=== PATIENT | female | born 1990 | race Caucasian/White ===

== ENCOUNTER 2016-12-11 09:09 | Emergency (ER) | payer BC ==
[~2016-12-11] VITALS: Ht 157.5 cm; Wt 79.4 kg
[~2016-12-11 09:09] MED LIST: CEFDINIR300 M1 PO; LORTAB 5/500 501 TAB PO; MACROBID 100MG100 MG PO; MEDROL 4MG. DOSE4 MG PO; OMNICEF 300 MG300 MG PO; SKELAXIN 800MG800 MG PO; ZITHROMAX Z PA250 MG PO
--- OUTSIDE RECORDS SUMMARY | 2016-12-11 09:18 | External Medical Summary Rpt | CCD ---
Author Author , ERIC Organization ERIC Address Unknown Phone [email or web address] Care Team Providers Care Sandstone Inspector Repairer Name Role Phone ASSOCIATED Unavailable [facility], Unavailable Unavailable [facility] Unavailable Unavailable [facility] Unavailable Unavailable MEDICAL GROUP, [facility] RENO, RENO Unavailable Unavailable [facility] Unavailable [facility]available [facility] VELASQUEZ GAR, VELASQUEZ GAR Unavailable Unavailable LONG, LONG Unavailable Unavailable RAISA TER, RAISA TER Unavailable Unavailable [facility], Unavailable Unavailable [facility], Unavailable Unavailable [facility] ZIEGLER GORDO, ZIEGLER GORDO Unavailable Unavailable KENDALL II THO, KENDALL II Unavailable Unavailable THO ISAIAS OLEG, ISAIAS OLEG Unavailable Unavailable ISAIAS OLEG, ISAIAS OLEG Unavailable Unavailable ADITYA CHR, ADITYA CHR Unavailable Unavailable ADITYA CHR, ADITYA CHR Unavailable Unavailable [facility] Unavailable Unavailable PRACTICE, [facility] GREEN MONE, GREEN MONE Unavailable Unavailable HIGH JR CUR, HIGH JR Unavailable Unavailable CUR HIGH JR CUR, HIGH JR Unavailable Unavailable CUR KEDING, KEDING Unavailable Unavailable KEDING, KEDING Unavailable Unavailable KEDING LEXX, KEDING Unavailable Unavailable [facility] KEDING [facility]X, KEDING Unavailable Unavailable [facility] [address], Unavailable Unavailable [facility] [address] [facility] Unavailable Unavailable ASSOC[facility], [facility] Unavailable Unavailable INTERNAL MED, [facility] Unavailable Unavailable SERVICES, [facility] MATCHESWALA KAIT, Unavailable Unavailable MATCHESWALA KAIT MCKEMIE JR ARIANNA, Unavailable Unavailable MCKEMIE JR ARIANNA MCKEMIE JR ARIANNA, Unavailable Unavailable MCKEMIE JR ARIANNA FISH SADIE, Unavailable Unavailable FISH SADIE FISH SADIE, Unavailable Unavailable FISH SADIE COLES JAM, COLES Unavailable Unavailable JAM COLES JAM, COLES Unavailable Unavailable J[facility] Unavailable Unavailable [facility], Unavailable [facility]available [facility] PETRAS ALI, PETRAS Unavailable Unavailable ALI JUAN LUIS, JUAN LUIS Unavailable Unavailable KERRY, KERRY Unavailable Unavailable KERRY HEN, KERRY Unavailable Unavailable HEN NELIDA HEN, NELIDA Unavailable Unavailable HEN CONNELL DON, Unavailable Unavailable CONNELL DON CHANDLER MIO, CHANDLER Unavailable Unavailable [facility] SWINEY PAT, SWINEY Unavailable Unavailable PAT WHITE III ARIANNA, WHITE Unavailable Unavailable III ARIANNA WHITE III ARIANNA, WHITE Unavailable Unavailable III ARIANNA Purpose Continuity of Care Document - 02-03-2012 through 2016 Problems Code Diagnosis DOS Provider Status M542 CERVICALGIA 10-11-2016 [place] M791 MYALGIA 05-01-2016 [facility] R0981 NASAL 05-01-2016 [facility] R5383 OTHER 05-01-2016 [facility] FATIGUE [facility] E669 OBESITY 02-06-2016 [place] UNSPECIFIED VALLEY INTERNAL MED R35387 MIGRAINE 02-06-2016 [place] W/AURA NOT VALLEY INTRACT W/O INTERNAL STAT MED MIGRAINOSUS K219 GASTRO-ESOP 02-06-2016 [place] H REFLUX VALLEY DISEASE INTERNAL WITHOUT MED ESOPHAGITIS H31429 MIGRAINE 01-31-2016 [facility] UNS NOT N EMERGENCY INTRACT W/O PHYS STATUS MIGRAINOSUS H538 OTHER 01-31-2016 [facility] DISTURBANCE S R51 HEADACHE 01-31-2016 [facility] J069 ACUTE UPPER 01-08-2016 [facility] RESPIRATORY PRACTICE INFECTION UNSPECIFIED O80 ENCOUNTER 09-30-2015 [facility] FULL-TERM MEDICAL UNCOMPLICAT GROUP ED DELIVERY Z370 SINGLE LIVE 09-30-2015 REST[facility]IST [facility] [id number] WEEKS 09-30-2015 RESTORATIONIST [facility] [id number] MATERNAL 09-23-2015 [facility] [place] GROWTH 3RD TRI NA/UNS [id number] 38 WEEKS 09-23-2015 RESTORATIONIST GESTATION [facility] M5432 SCIATICA 09-18-2015 AD[facility] CHR LEFT SIDE M9904 SEGMENTAL & 09-18-2015 AD[facility]A CHR SOMATIC DYSFUNCTION OF SACRAL REGION M9905 SEGMENTAL & 09-18-2015 ADITYA CHR SOMATIC DYSFUNCTION OF PELVIC REGION [id number] PAIN IN 08-26-2015 RESTORATIONIST RIGHT HIP [facility] [id number] MATERNAL 08-26-2015 REST[facility]IST CARE FOR [facility] MEDICAL PRESENTATIO GROUP N NA/UNS [id number] 34 WEEKS 08-26-2015 RESTORATIONIST [facility] OF MEDICAL GROUP J0100 ACUTE 05-13-2015 [facility]IST [facility] SINUSITIS MEDICAL UNSPECIFIED GROUP 7088 OTHER 09-02-2014 RESTORATIONIST SPECIFIED [facility]ALTH [facility] 7231 CERVICALGIA 07-24-2014 KEMIRELA [place] 7235 TORTICOLLIS 07-24-2014 RALF [place] , UNSPECIFIED 53620 CLOSED 07-24-2014 [place] FRACTURE OF ORTHOPAEDIC UPPER END ASSOCI OF [place] V7231 ROUTINE 06-09-2014 RESTOR[facility]IST GYNECOLOGIC HEALTH AL MEDICAL EXAMINATION GROUP V762 SCREENING 06-09-2014 ASSOC[facility]ATED FOR PATHOLOGIST MALIGNANT S LLC NEOPLASM OF THE CERVIX 20632 SPASMODIC 05-18-2014 [facility] TORTICOLLIS N EMERGENCY PHYS 7241 PAIN IN 05-18-2014 [facility] THORACIC N EMERGENCY SPINE PHYS 7248 OTHER 05-18-2014 [facility] SYMPTOMS N EMERGENCY REFERABLE PHYS TO BACK 4611 ACUTE 04-14-2014 [facility] SINUSITIS HOSPITAL 63825 ESOPHAGEAL 04-14-2014 [facility] REFLUX [facility] 7242 LUMBAGO 04-14-2014 [place] 7851 PALPITATION 04-14-2014 [facility] 74517 PRECORDIAL 04-14-2014 [facility] PAIN [facility] V2541 SURVEILLANC 03-31-2014 RESTORATIONIST E PREV HEALTH PRESCRIBED MEDICAL CONTRACEPT GROUP PILL V2543 SURVEILLANC 03-31-2014 RESTORATIONIST E PREV PRSC HEALTH IMPL MEDICAL SUBDERMAL GROUP CONTRACEPT 4619 ACUTE 03-13-2014 [facility] SINUSITIS, [facility] UNSPECIFIED HOSPITAL 7840 HEADACHE 03-13-2014 [facility] 460 ACUTE 02-17-2014 RESTORATIONIST NASOPHARYNG [facility] 79008 ACUTE 02-17-2014 RESTORATIONIST GASTRITIS EXPRESS WITHOUT CARE MENTION OF HEMORRHAGE 1104 DERMATOPHYT 01-20-2014 [facility] 6262 EXCESSIVE 10-25-2012 COLES JAM OR FREQUENT MENSTRUATIO N 68234 MATERNAL 10-25-2012 COLES JAM MENTAL D/O COND/COMPLI CATION V242 ROUTINE 10-25-2012 COLES JAM FOLLOW-UP 650 NORMAL 09-06-2012 WHITE III DELIVERY ARIANNA 73523 FIRST-DEGRE 09-06-2012 COLES JAM E PERINEAL LACERATION WITH DELIVERY 7019 UNSPECIFIED 09-06-2012 ISAIAS DEJESUS HYPERTROPHI C&ATROPHIC CONDITION SKIN V270 OUTCOME OF 09-06-2012 COLES JAM DELIVERY SINGLE LIVEBORN 47978 DECR 09-04-2012 COLES [facility] MOVMNTS MGMT MOTH ANTPRTM COND/COMP V220 SUPERVISION 09-04-2012 COLES JAM OF NORMAL FIRST V2889 OTHER 09-04-2012 [facility] SPECIFIED SCREENING 49883 THREATENED 08-10-2012 COLES J[facility] PREMATURE LABOR ANTEPARTUM V2389 SUPERVISION 07-04-2012 FISH OF OTHER SADIE HIGH-RISK 80555 GENERALLY 06-01-2012 HIGH JR CUR CONTRACTED PELVIS ANTEPARTUM 39047 OTHER 05-03-2012 HIGH JR CUR SPECIFED COMPLICATIO N ANTEPARTUM 63511 OTH CURRENT 05-03-2012 [facility] MAT CONDS [facility] CLASS[facility]L HOSP E ELSW ANTPRTM 14227 TOB USE D/O 05-03-2012 [facility] COMP PG [facility] /PP HOSP ANTEPARTM COND/COMP 49451 ABDOMINAL 05-03-2012 HIGH JR CUR PAIN RIGHT LOWER QUADRANT 59811 ABDOMINAL 05-03-2012 [facility] PAIN OTHER [facility]IST SPECIFIED HOSP SITE V741 SCREENING 03-22-2012 USMAN RAMOS EXAMINATION ARIANNA FOR PULMONARY TUBERCULOSI S 6929 CONTACT 02-03-2012 [facility] DERMATITIS& EMERGENCY OTHER SERVICES ECZEMA DUE UNSPEC CAUSE 9953 ALLERGY 02-03-2012 [facility] UNSPECIFIED [facility]ERGENCY NOT SERVICES ELSEWHERE CLASSIFIED V141 PERSONAL 02-03-2012 [facility] OTHER ANTIBIOTIC AGENT V222 02-03-2012 [facility] Medications Na ND Rx Da Fi Fi Am Da Di Ph RX Ph St me C No te ll ll ou ys ag ar # ys at rm s nt no ma ic us Or Da si cy ia de te s n re d FL 00 04 05 7. 7 00 WA Ac UO 09 -1 -1 00 00 L- ti XE 37 0- 2- 0 07 MA ve TI 19 20 20 40 RT NE 85 17 17 32 6 58 PH HC AR L MA 40 CY MG #4 93 CA PS UL E IB 68 03 04 90 30 00 WA Ac UP 64 -1 -1 .0 00 L- ti RO 50 2- 4- 00 07 MA ve FE 53 20 20 39 RT N 15 17 17 76 80 4 67 PH 0 AR MG MA CY TA BL #4 ET 93 OS 47 03 04 10 5 00 WA Ac EL 78 -1 -1 .0 00 L- ti TA 10 2- 4- 00 07 MA ve DC 47 20 20 39 RT 01 17 17 76 R 3 68 PH PH AR OS MA CY 75 #4 MG 93 CA PS UL E BU 49 02 03 60 31 00 WA Ac SP 88 -2 -3 .0 00 L- ti IR 40 3- 1- 00 07 MA ve ON 72 20 20 39 RT E 50 17 17 45 HC 5 67 PH L AR 7. MA 5 CY MG #4 TA 93 BL ET FL 00 02 03 30 30 00 WA Ac UO 09 -2 -3 .0 00 L- ti XE 37 3- 1- 00 07 MA ve TI 19 20 20 39 RT NE 85 17 17 45 6 66 PH HC AR L MA 40 CY MG #4 93 CA PS UL E Procedures Procedure DOS Code Location Performer Comment [facility] 22279 [place] TIC 7 MANIPULAT YESSI [place] SPINAL 1-2 REG[place] [facility] 01851 [place] TIC 7 MANIPULAT YESSI [place] SPINAL 1-2 REG[place] [facility] 25839 [place] TIC 7 MANIPULAT YESSI TX SPINAL 1-2 REG[place] [facility] 98522 [place] TIC 7 MANIPULAT YESSI TX SPINAL 1-2 REG[place] [facility] 02408 [place] TIC 7 MANIPULAT YESSI TX SPINAL 1-2 REGIONS [facility] 40121 [place] TIC 7 MANIPULAT YESSI TX SPINAL 1-2 REGIONS [facility] 67806 [place] TIC 7 MANIPULAT YESSI TX SPINAL 1-2 REG[place] [facility] 53399 [place] TIC 7 MANIPULAT YESSI [place] SPINAL 1-2 [place] APPL 31785 [place] MODALITY 7 1/> AREAS TRACTION MECHANICA L CHIROPRAC 33398 [place] TIC 7 MANIPULAT YESSI TX SPINAL 1-2 [place] THERAPEUT 22338 [place] IC PX 1/> 7 AREAS EACH 15 MIN EXERCISES IAADIADOO 26491 RESTORATIONIST KERRY 7 HEALTH INFL[facility] MEDICAL GROUP THERAPEUT 93087 RALF ALARCONDING IC PX 1/> 7 AREAS EACH 15 MIN EXERCISES APPL 12955 AGNESDING [place] MODALITY 7 1/> AREAS TRACTION MECHANICA L CHIROPRAC 12136 [place] TIC 7 MANIPULAT [place]ESS[place] SPINAL 1-[address] [place] [address] [facility] HEAD/BRAI 6 RADIOLOGY N W/O CONTRAST MATERIAL INJ J0702 [facility] HEN SONE PRACTICE ACETATE & PHOSPHATE 3 MG THERAPEUT 10879 [facility] IC 6 N FAMILY [facility] PROPHYLAC PRACTICE TIC/DX INJECTION SUBQ/IM NEURAXIAL 14814 RESTORATIONIST CHANDLER LABOR 6 ANESTHESI MIO ANALG/ANE A PSC S PLND VAGINAL DELIVERY OB CARE 71495 RESTORATIONIST COLES ANTEPARTU 6 HEALTH JAM M VAG MEDICAL DLVR & GROUP POSTPARTU M INTRODUCT [id number] RESTORATIONIST RESTORATIONIST ION OTH 6 [facility] PERIPHERA L VEIN PERQ DELIVERY [id number] RESTORATIONIST RESTORATIONIST PRODUCTS 6 [facility] CONCEPTIO N EXTERNAL US PREG 65184 RESTORATIONIST RESTORATIONIST UTERUS 6 [facility] TRIMEST 1 GESTATION CHIROPRAC 40431 ADITYA CHR ADITYA CHR TIC 6 MANIPULAT YESSI TX SPINAL 1-2 REGIONS 95828 RESTORATIONIST COLES 6 [facility]TER[facility] MEDICAL LIMITED GROUP 1/> FETUSES RADIOLOGI 13069 [place] VELASQUEZ GAR C 5 EXAMINATI ORTHOPAED ON KNEE IC ASSOCI 1/2 VIEWS CHIROPRAC 10577 [place] TIC 5 [place]X [place] MANIPULAT YESSI TX SPINAL 1-2 REGIONS CHIROPRAC 61745 [place] TIC 5 LEXX [place]EX[place] MANIPULAT YESSI TX SPINAL 1-2 REGIONS CHIROPRAC 27579 [place] TIC 5 LEXX [place]EXX MANIPULAT YESSI TX SPINAL 1-2 REGIONS CHIROPRAC 01247 [place] TIC 5 LEXX LXEX MANIPULAT YESSI TX SPINAL 1-2 REGIONS CHIROPRAC 91009 [place] TIC 5 LEXX LEXX MANIPULAT YESSI TX SPINAL 1-2 REGIONS CHIROPRAC 43781 [place] TIC 5 LEXX [place]EXX MANIPULAT YESSI TX SPINAL 1-2 REGIONS CHIROPRAC 15704 [place] TIC 5 LEXX [place]EX[place] MANIPULAT YESSI TX SPINAL 1-2 REGIONS CYTP C/V 35986 ASSOCIATE LENEMILTO AUTO THIN [address] L[address] PATHOLOGI PREPJ SCR STS LLC MNL RESCR PHYS CHIROPRAC 72790 [place] TIC 5 LEXX LEX[place] MANIPULAT YESSI TX SPINAL 1-2 REGIONS CHIROPRAC 98808 [place] TIC 5 LEXX LEXX MANIPULAT YESSI TX SPINAL 1-2 REGIONS CHIROPRAC 16513 [place] TIC 5 LEXX LEXX MANIPULAT YESSI TX SPINAL 1-2 REGIONS CHIROPRAC 47976 [place] TIC 5 LEXX [place]X MANIPULAT YESSI TX SPINAL 1-2 [facility] COMPREHEN 21992 [facility] SIVE [address] [place] [address] HOSPITAL PANEL APPL 97731 [place] MODALITY 5 LEXX LEXX 1/> [place] [address] [facility] THYROID [address] [place] [address] NG HORMONE TSH COLLECTIO 76628 [facility] N VENOUS 5 [facility] VENIPUNCT URE THERAPEUT 29678 [place] IC PX 1/> 5 [place] AREAS EACH 15 MIN EXERCISES SEDIMENTA 33247 [facility] TION RATE 5 [facility] NON-AUTOM ATED 25 93715 [facility] HYDROXY [address] [place] [address] FRACTIONS IF PERFORMED GONADOTRO 49355 [facility] PIN [address] [place] [address] QUALITATI VE BLOOD 17127 [facility] COUNT 5 [facility] AUTO&AUTO DIFRNTL WBC REMOVAL 84518 RESTORATIONIST COLES NON-BIODE 5 HEALTH JAM GRADABLE [facility] DR[facility] GROUP DELIVERY IMPLANT CHIROPRAC 77996 [place] TIC 5 L[place]X [place] MANIPULAT YESSI TX SPINAL 1-2 REGIONS CHIROPRAC 25736 [place] TIC 5 L[place]X [place] MANIPULAT YESSI TX SPINAL 1-2 REG[facility] APPL 97803 [place] MODALITY 5 L[place]X LEXX 1/> AREAS TRACTION MECHANICA L THERAPEUT 72528 [place] IC PX 1/> 5 [place] AREAS [place] [address] [place] [address] [facility]/BRAI 5 [facility] W/O [facility] CONTRAST MATERIAL CHIROPRAC 65409 [place] TIC 5 [place]X [place] MANIPULAT YESSI TX SPINAL 1-2 REGIONS CHIROPRAC 23174 [place] TIC 5 L[place]X [place]EXX MANIPULAT YESSI TX SPINAL 1-2 REGIONS ECHO 45480 GORDO ZIEGLER ZIEGLER GORDO TTHRC R-T 5 2D CONSULTIN W/WOM-MOD G SRV E COMPL SPEC&COLR D ECG 11838 GORDO ZIEGLER ZIEGLER GORDO ROUTINE 5 MD ECG CONSULTIN W/LEAST G SRV 12 LDS W/I&R INJECTION J3301 SAVANNAH MCGARRY MONE 5 [facility] ACETONIDE NOS 10 [facility] 14652 [facility]IST KERRY 4 EXPRESS HEN INFLUENZA CARE 56673 COLES COLES TRANSVAGI 3 JAM JAM NAL ETONOGEST J7307 COLES COLES REL 3 JAM JAM CNTRACPT IMPL SYS INCL IMPL & SPL INSJ 54706 COLES COLES NON-BIODE 3 JAM JAM GRADABLE DRUG DELIVERY IMPLANT VAGINAL 43402 COLES COLES DELIVERY 3 JAM JAM ONLY W/POSTPAR LORI CARE LEVEL III 24836 ISAIAS ESPARZA OLEG SURG 3 PATHOLOGY GROSS&TIARA ROSCOPIC EXAM NEURAXIAL 55969 WHITE III WHITE III LABOR 3 ARIANNA ARIANNA ANALG/ANE S PLND VAGINAL DELIVERY MEDICAL 734 [facility] INDUCTION 3 RESTORATIONIST RESTORATIONIST OF LABOR HOSP HOSP REPAIR OF 7569 [facility] OTHER 3 RESTORATIONIST RESTORATIONIST CURRENT HOSP HOSP OBSTETRIC LACERATIO N OTHER 7279 [facility] VACUUM 3 RESTORATIONIST RESTORATIONIST EXTRACTIO HOSP HOSP N INDUCTION 7301 [facility] LABOR 3 RESTORATIONIST RESTORATIONIST ARTIFICIA HOSP HOSP L RUPTURE MEMBRANES 39911 COLES COLES NONSTRESS 3 JAM JAM TEST CUL 37532 PATH PATH PRSMPTV 3 GROUP GROUP PTHGNC LABS [facility] LABS ClariFI ORGANISM SCRN W/COLONY ESTIMJ 69027 COLES COLES BIOPHYSIC 3 JAM JAM AL PROFILE NON-STRES S TESTING US PREG 76938 COLES COLES UTERUS 3 JAM JAM REAL TIME W/IMAGE DCMTN [facility] 78802 COLES COLES DISCHARGE 3 JAM JAM DAY MANAGEMEN T 30 MIN/< US PREG 04270 FISH FISH UTERUS 3 SADIE SADIE W/DETAIL CHAY 1ST GESTATION SBSQ 01735 [facility] 3 JAM JAM CARE/DAY 15 MINUTES INITIAL 84664 COLES COLES OBSERVATI 3 JAM JAM ON CARE/DAY 30 MINUTES GLUCOSE 70737 PATH PATH POST 3 GROUP GROUP GLUCOSE LABS [facility] DOSE INJECTION J3105 [facility] 3 RESTORATIONIST RESTORATIONIST TERBUTALI HOSP HOSP NE SULFATE UP TO 1 [place] [address] HIGH JR HIGH JR NONSTRESS 3 CUR CUR TEST INITIAL 47326 HIGH JR HIGH JR OBSERVATI 3 CUR CUR ON CARE/DAY 30 MINUTES URNLS DIP 21021 [facility] 3 RESTORATIONIST RESTORATIONIST STICK/TAB HOSP HOSP LET RGNT AUTO W/O MICROSCOP Y URNLS DIP 87549 [facility] 3 RESTORATIONIST RESTORATIONIST STICK/TAB HOSP HOSP LET RGNT AUTO W/O MICROSCOP Y INITIAL 30140 HIGH JR HIGH JR OBSERVATI 3 CUR CUR ON CARE/DAY 50 MINUTES 11649 [facility] NONSTRESS 3 RESTORATIONIST RESTORATIONIST TEST HOSP HOSP INJECTION J3105 [facility] 3 RESTORATIONIST RESTORATIONIST TERBUTALI HOSP HOSP NE SULFATE UP TO 1 MG US PREG 86910 COLES COLES UTERUS 3 JAM JAM AFTER 1ST TRIMEST / GESTATION ALPHA-FET 47953 PATH PATH OPROTEIN 3 GROUP GROUP [facility] CFTR GENE 06755 RAISA HATFIELD ANALYSIS [address] [place] [address] [address] ESTRIOL 3 GROUP [facility] [place] [address] PATH PATH 3 GROUP [facility] GONADOTRO 02041 PATH PATH PIN 3 GROUP GROUP CHORIONIC [facility] QUANTITAT YESSI SKIN TEST 31858 MARIA AMIE DEMARIOKEMIE 3 JR ARIANNA RAMOS ARIANNA TUBERCULO SIS INTRADERM AL IM ADM 88926 USMAN MARY PRQ ID 3 JR ARIANNA RAMOS ARIANNA SUBQ/IM NJXS 1 VACCINE IAADIADOO 37539 USMAN HANKSKEMIE 3 JR ARIANNA RAMOS ARIANNA INFLUENZA COLLECTIO 39564 RAISA HATFIELD N VENOUS 3 BLOOD VENIPUNCT URE THERAPEUT [address] TIC/DX INJECTION SUBQ/IM Encounters Encounter Start End Date Code Location Performer Type Date OFFICE 57480 RALF ARAMBULA OUTPATIEN 7 7 T VISIT 5 MINUTES OFFICE 92934 RESTORATIONIST KERRY OUTPATIEN 7 7 HEALTH T VISIT MEDICAL 15 GROUP MINUTES OFFICE 75932 L[facility] RENO OUTPATIEN 6 6 VALLEY T VISIT INTERNAL 15 MED MINUTES EMERGENCY 91337 [facility] DEPT 6 6 KATHRYN VISIT EMERGENCY HIGH PHYS SEVERITY& THREAT FUNCJ OFFICE 60033 [facility] NELIDA OUTPATIEN 6 6 N FAMILY HEN T VISIT PRACTICE 15 MINUTES [facility] RESTORATIONIST - 6 6 HEALTH INPATIENT [facility] RESTORATIONIST - 6 6 HEALTH OUTPATIEN [place] T OFFICE 32526 ADITYA CHR ADITYA CHR OUTPATIEN 6 6 T NEW 20 MINUTES OFFICE 47001 RESTORATIONIST COLES OUTPATIEN 6 6 HEALTH JAM T VISIT MEDICAL 15 GROUP MINUTES OFFICE 07871 RESTORATIONIST MATCHESWA OUTPATIEN 6 6 HEALTH LA KAIT T VISIT MEDICAL 15 GROUP MINUTES OFFICE 42491 RESTORATIONIST CONNELL OUTPATIEN 5 5 HEALTH DON T VISIT MEDICAL 15 GROUP MINUTES OFFICE 35404 [facility] 5 T VISIT ORTHOPAED 10 IC ASSOCI MINUTES PERIODIC 46838 RESTORATIONIST COLES PREVENTIV 5 5 HEALTH JAM E MED EST MEDICAL PATIENT GROUP 18-39 YRS EMERGENCY 27553 [facility] DEPT 5 5 KATHRYN THO VISIT EMERGENCY HIGH PHYS SEVERITY& THREAT [facility] - 5 5 [facility] OFFICE 86336 RESTORATIONIST COLES OUTPATIEN 5 5 HEALTH JAM T VISIT MEDICAL 15 GROUP MINUTES [facility] - 5 5 [facility] OFFICE 98297 [place] [place] OUTPATIEN 5 5 [place] T NEW 30 MINUTES OFFICE 73476 [facility] ZIEGLER ZIEGLER GORDO OUTPATIEN 5 5 MD T VISIT 5 CONSULTIN MINUTES G SRV OFFICE 37420 SAVANNAH GREEN MONE OUTPATIEN 5 5 FAMILY T VISIT PHYSICIAN 15 S PLLC MINUTES OFFICE 32092 RESTORATIONIST KERRY OUTPATIEN 4 4 EXPRESS HEN T NEW 30 CARE MINUTES OFFICE 63122 SAVANNAH PETRAS OUTPATIEN 4 4 FAMILY ALI T VISIT PHYSICIAN 15 S PLLC MINUTES OFFICE 79572 COLES COLES OUTPATIEN 3 3 JAM JAM T VISIT 15 MINUTES OFFICE 67493 COLES COLES OUTPATIEN 3 3 JAM JAM T VISIT 15 MINUTES HOSPITAL CENTRAL - 3 3 RESTORATIONIST INPATIENT HOSP OFFICE 29039 COLES COLES OUTPATIEN 3 3 JAM JAM T VISIT 15 MINUTES OFFICE 89051 COLES COLES OUTPATIEN 3 3 JAM JAM T VISIT 15 MINUTES OFFICE 06694 COLES COLES OUTPATIEN 3 3 JAM JAM T VISIT 15 MINUTES OFFICE 65934 COLES COLES OUTPATIEN 3 3 JAM JAM T VISIT 15 MINUTES OFFICE 93674 COLES COLES OUTPATIEN 3 3 JAM JAM T VISIT 15 MINUTES OFFICE 57037 COLES COLES OUTPATIEN 3 3 JAM JAM T VISIT 15 MINUTES OFFICE 36383 COLES COLES OUTPATIEN 3 3 JAM JAM T VISIT 15 MINUTES OFFICE 14302 COLES COLES OUTPATIEN 3 3 JAM JAM T VISIT 15 MINUTES OFFICE 61733 COLES COLES OUTPATIEN 3 3 JAM JAM T VISIT 15 MINUTES OFFICE 63231 COLES COLES OUTPATIEN 3 3 JAM JAM T VISIT 15 MINUTES OFFICE 13515 COLES COLES OUTPATIEN 3 3 JAM JAM T VISIT 15 MINUTES HOSPITAL CENTRAL - 3 3 [facility]ATIONIST INPATIENT HOSP OFFICE 13054 COLES COLES OUTPATIEN 3 3 JAM JAM T VISIT 15 MINUTES OFFICE 39826 COLES COLES OUTPATIEN 3 3 JAM JAM T VISIT 15 MINUTES OFFICE 19538 COLES COLES OUTPATIEN 3 3 JAM JAM T VISIT 15 MINUTES HOSPITAL CENTRAL - 3 3 RESTORATIONIST OUTPATIEN HOSP T OFFICE 56096 COLES COLES OUTPATIEN 3 3 JAM JAM T VISIT 15 MINUTES OFFICE 25014 COLES COLES OUTPATIEN 3 3 JAM JAM T VISIT 15 MINUTES HOSPITAL CENTRAL - 3 3 RESTORATIONIST OUTPATIEN HOSP T OFFICE 37894 COLES COLES OUTPATIEN 3 3 JAM JAM T VISIT 15 MINUTES OFFICE 68816 COLES COLES OUTPATIEN 3 3 JAM JAM T VISIT 15 MINUTES OFFICE [id number] MCKEMIE MCKEMIE OUTPATIEN 3 3 JR ARIANNA JR ARIANNA T VISIT 15 MINUTES OFFICE 07121 COLES COLES OUTPATIEN 3 3 JAM JAM T VISIT 15 MINUTES EMERGENCY 37938 NEWHALL 2 2 [facility] T VISIT MODERATE SEVERITY [facility] 2 2 [facility] EMERGENCY 88719 VERONICA CATALAN 2 2 EMERGENCY [facility] T VISIT HIGH/URGE NT SEVERITY
--- OUTSIDE RECORDS SUMMARY | 2016-12-11 09:18 | External Medical Summary Rpt | CCD ---
Author Author , ERIC Organization ERIC Address Unknown Phone [email or web address] Care Team Providers Care Contact Lens Manufacturer Name Role Phone [facility]OC[facility]ATED Unavailable [facility], Unavailable Unavailable [facility] Unavailable Unavailable [facility] Unavailable Unavailable MEDICAL GROUP, [facility] RENO, RENO Unavailable Unavailable [facility] Unavailable Unavailable HOSPITAL, [facility] VELASQUEZ GAR, VELASQUEZ GAR Unavailable Unavailable LONG, LONG Unavailable Unavailable RAISA TER, RAISA TER Unavailable Unavailable [facility], Unavailable Unavailable [facility], Unavailable Unavailable [facility] ZIEGLER GORDO, ZIEGLER GORDO Unavailable Unavailable KENDALL II THO, KENDALL II Unavailable Unavailable THO ISAIAS OLEG, ISAIAS OLEG Unavailable Unavailable ISAIAS OLEG, ISAIAS OLEG Unavailable Unavailable ADITYA CHR, ADITYA CHR Unavailable Unavailable ADITYA CHR, ADITYA CHR Un[facility] GREEN MONE, GREEN MONE Unavailable Unavailable HIGH JR CUR, HIGH JR Unavailable Unavailable CUR HIGH JR CUR, HIGH JR Unavailable Unavailable CUR KEDING, KEDING Unavailable Unavailable KEDING, KEDING Unavailable Unavailable KEDING [facility], KEDING Unavailable Unavailable [facility] K[facility]ING [facility], KEDING Unavailable Unavailable [facility] [address], Unavailable Unavailable [facility] Unavailable Unavailable [facility]OCI, [facility] Unavailable Unavailable [facility], [facility] Unavailable Unavailable SERVICES, [facility] MATCHESWALA KAIT, Unavailable Unavailable MATCHESWALA KAIT MCKEMIE JR ARIANNA, Unavailable Unavailable MCKEMIE JR ARIANNA MCKEMIE JR ARIANNA, Unavailable Unavailable MCKEMIE JR ARIANNA FISH SADIE, Unavailable Unavailable FISH SADIE FISH SADIE, Unavailable Unavailable FISH SADIE COLES JAM, COLES Unavailable Unavailable JAM COLES JAM, COLES Unavailable Unavailable JAM [facility] Unavailable Unavailable [facility], Unavailable Unavailable [facility] PETRAS ALI, PETRAS Unavailable Unavailable ALI [...] M542 CERVICALGIA 10-11-2016 [place] M791 MYALGIA 05-01-2016 [facility] R0981 NASAL 05-01-2016 [facility] R5383 OTHER 05-01-2016 [facility] FATIGUE [facility] E669 OBESITY 02-06-2016 [place] UNSPECIFIED VALLEY INTERNAL MED P09118 MIGRAINE 02-06-2016 [place] W/AURA NOT VALLEY INTRACT W/O INTERNAL STAT MED MIGRAINOSUS K219 GASTRO-ESOP 02-06-2016 [place] H REFLUX VAL[facility] DISEASE INTERNAL WITHOUT MED ESOPHAGITIS T04494 MIGRAINE 01-31-2016 [facility] UNS NOT N EMERGENCY INTRACT W/O PHYS STATUS MIGRAINOSUS H538 OTHER 01-31-2016 [facility] DISTURBANCE S R51 HEADACHE 01-31-2016 [facility] J069 ACUTE UPPER 01-08-2016 [facility]ACTICE INFECTION UNSPECIFIED O80 ENCOUNTER 09-30-2015 [facility] FULL-TERM MEDICAL UNCOMPLICAT GROUP ED DELIVERY Z370 SINGLE LIVE 09-30-2015 [facility] [id number] 39 WEEKS 09-30-2015 [facility] [id number] MATERNAL 09-23-2015 [facility] GROWTH 3RD TRI NA/UNS [id number] 38 WEEKS 09-23-2015 [facility] GESTATION [facility] M5432 SCIATICA 09-18-2015 ADITYA CHR LEFT SIDE M9904 SEGMENTAL & 09-18-2015 ADITYA CHR SOMATIC DYSFUNCTION OF SACRAL REGION M9905 SEGMENTAL & 09-18-2015 ADITYA CHR SOMATIC DYSFUNCTION OF PELVIC REGION P29055 PAIN IN 08-26-2015 [facility] RIGHT HIP [facility] [id number] MATERNAL 08-26-2015 [facility] MEDICAL PRESENTATIO GROUP N NA/UNS [id number] 34 WEEKS 08-26-2015 [facility]ATION [facility] J0100 ACUTE 05-13-2015 [facility] SINUSITIS MEDICAL UNSPECIFIED GROUP 7088 OTHER 09-02-2014 [facility] SPECIFIED [facility] 7231 CERVICALGIA 07-24-2014 [facility]EM[facility] [place] 7235 TORTICOLLIS 07-24-2014 RALF [place] , UNSPECIFIED 21707 CLOSED 07-24-2014 [place] FRACTURE OF ORTHOPAEDIC UPPER END ASSOCI OF [place] V7231 ROUTINE 06-09-2014 [facility] GYNEC[facility] AL MEDICAL EXAMINATION GROUP V762 SCREENING 06-09-2014 [facility] FOR PATHOLOGIST [facility] S [facility] NEOPLASM OF THE CERVIX 05923 SPASMODIC 05-18-2014 [facility] TORTICOLLIS N EMERGENCY PHYS 7241 PAIN IN 05-18-2014 [facility] THORACIC N EMERGENCY SPINE PHYS 7248 OTHER 05-18-2014 [facility] SYMPTOMS N EMERGENCY REFERABLE PHYS TO BACK 4611 ACUTE 04-14-2014 [facility]IN[facility]IS HOSPITAL 08905 ESOPHAGEAL 04-14-2014 [facility] REFLUX [facility] 7242 LUMBAGO 04-14-2014 [place] 7851 PALPITATION 04-14-2014 [facility] 79394 PRECORDIAL 04-14-2014 [facility] PAIN [facility] V2541 SURVEILLANC 03-31-2014 [facility] E PREV HEALTH PRESCRIBED MEDICAL CONTRACEPT GROUP PILL V2543 SURVEILLANC 03-31-2014 [facility] E PREV PRSC HEALTH IMPL MEDICAL SUBDERMAL GROUP CONTRACEPT 4619 ACUTE 03-13-2014 [facility] SINUSITIS, [facility] 7840 HEADACHE 03-13-2014 [facility] 460 ACUTE 02-17-2014 [facility] IT[facility] 70512 ACUTE 02-17-2014 [facility] GASTRITIS EXPRESS WITHOUT CARE MENTION OF HEMORRHAGE 1104 DERMATOPHYT 01-20-2014 [facility] 6262 EXCESSIVE 10-25-2012 COLES JAM OR FREQUENT MENSTRUATIO N 35434 MATERNAL 10-25-2012 COLES JAM MENTAL D/O COND/COMPLI CATION V242 ROUTINE 10-25-2012 [facility] FOLLOW-UP 650 NORMAL 09-06-2012 WHITE III DELIVERY ARIANNA 15624 FIRST-DEGRE 09-06-2012 COLES JAM E PERINEAL LACERATION WITH DELIVERY 7019 UNSPECIFIED 09-06-2012 ISAIAS DEJESUS HYPERTROPHI C&ATROPHIC CONDITION SKIN V270 OUTCOME OF 09-06-2012 COLES JAM DELIVERY SINGLE LIVEBORN 97073 DECR 09-04-2012 [facility] MOVMNTS MGMT MOTH ANTPRTM COND/COMP V220 SUPERVISION 09-04-2012 COLES JAM OF NORMAL FIRST V2889 OTHER 09-04-2012 [facility] SPECIFIED SCREENING 24362 THREATENED 08-10-2012 [facility] PREMATURE LABOR ANTEPARTUM V2389 SUPERVISION 07-04-2012 FISH OF OTHER SADIE HIGH-RISK 47248 GENERALLY 06-01-2012 HIGH JR CUR CONTRACTED PELVIS ANTEPARTUM 78542 OTHER 05-03-2012 HIGH JR CUR SPECIFED COMPLICATIO N ANTEPARTUM 25706 OTH CURRENT 05-03-2012 [facility] MAT CONDS [facility] CLASS[facility] E ELSW ANTPRTM 59850 TOB USE D/O 05-03-2012 [facility] COMP PG [facility] /PP HOSP ANTEPARTM COND/COMP 53742 ABDOMINAL 05-03-2012 HIGH JR CUR PAIN RIGHT LOWER QUADRANT 56747 ABDOMINAL 05-03-2012 [facility] PAIN OTHER [facility] SPECIFIED HOSP SITE V741 SCREENING 03-22-2012 USMAN RAMOS EXAMINATION ARIANNA FOR PULMONARY TUBERCULOSI S 6929 CONTACT 02-03-2012 [facility] DERMATITIS& EMERGENCY OTHER SERVICES ECZEMA DUE UNSPEC CAUSE 9953 ALLERGY 02-03-2012 [facility] UNSPECIFIED EMERGENCY NOT SERVICES ELSEWHERE CLASSIFIED V141 PERSONAL 02-03-2012 [facility] OTHER ANTIBIOTIC AGENT V222 02-03-2012 [facility] Medications Na ND Rx Da Fi [...] 10 2- 4- 00 07 [place] ve WI 47 20 20 39 RT 01 17 [...] Procedures Procedure DOS Code Location Performer Comment [facility] 72750 [place] T[place] 7 MANIPULAT YESSI TX SPINAL 1-2 REGIONS [facility] 73932 [place] TIC 7 MANIPULAT YESSI TX SPINAL 1-2 REGIONS [facility] 78449 [place] TIC 7 MANIPULAT YESSI TX SPINAL 1-2 REGIONS [facility] 94417 [place] TIC 7 MANIPULAT YESSI TX SPINAL 1-2 REGIONS [facility] 12448 [place] TIC 7 MANIPULAT YESSI TX SPINAL 1-2 REGIONS [facility] 70269 [place] TIC 7 MANIPULAT YESSI TX SPINAL 1-2 REGIONS [facility] 84763 [place] TIC 7 MANIPULAT YESSI TX SPINAL 1-2 REGIONS [facility] 17538 [place] TIC 7 MANIPULAT YESSI TX SPINAL 1-2 REGIONS APPL 58305 [place] MODALITY 7 1/> AREAS TRACTION MECHANICA L CHIROPRAC 61231 [place] TIC 7 MANIPULAT YESSI TX SPINAL 1-2 REGIONS THERAPEUT 96314 [place] IC PX 1/> 7 AREAS EACH 15 MIN EXERCISES IAADIADOO 84356 [facility] KERRY 7 HEALTH INFLUENZA MEDICAL GROUP THERAPEUT 58012 RALF ALARCONDING IC PX 1/> 7 AREAS EACH 15 MIN EXERCISES APPL 64246 AGNESDING [place] MODALITY 7 1/> AREAS TRACTION MECHANICA L CHIROPRAC 50570 [place] TIC 7 MANIPULAT [place]ESS[place] SPINAL 1-[address] [place] [address] [facility] LONG HEAD/BRAI 6 RADIOLOGY N W/O CONTRAST MATERIAL INJ J0702 [facility] 6 N FAMILY HEN SONE PRACTICE ACETATE & PHOSPHATE 3 MG THERAPEUT 34952 [facility] IC 6 N FAMILY [facility] PROPHYLAC PRACTICE TIC/DX INJECTION SUBQ/IM NEURAXIAL 95864 [facility] CHANDLER LABOR 6 ANESTHESI MIO ANALG/ANE A PSC S PLND VAGINAL DELIVERY OB CARE 82696 [facility] COLES ANTEPARTU 6 HEALTH JAM M VAG MEDICAL DLVR & GROUP POSTPARTU M INTRODUCT [id number] [facility] ION OTH 6 [facility]ALTH [facility] PERIPHERA L VEIN PERQ DELIVERY 25L6CPA [facility] PRODUCTS 6 [facility] OF [facility] CONCEPTIO N EXTERNAL US PREG 90836 [facility] UTERUS 6 HEALTH HEALTH AFTER [facility] TRIMEST 1 GESTATION CHIROPRAC 42887 ADITYA CHR ADITYA CHR TIC 6 MANIPULAT YESSI TX SPINAL 1-2 REGIONS 04058 [facility] COLES 6 [facility]ALTH [facility] GROUP 1/> FETUSES RADIOLOGI 36242 [facility] C 5 EXAMINATI ORTHOPAED ON KNEE IC ASSOCI 1/2 VIEWS CHIROPRAC 39693 [place] TIC 5 [place] MANIPULAT YESSI TX SPINAL 1-2 REGIONS CHIROPRAC 94012 [place] TIC 5 LEXX LEXX MANIPULAT YESSI TX SPINAL 1-2 REGIONS CHIROPRAC 49817 [place] TIC 5 LEXX LEXX MANIPULAT YESSI TX SPINAL 1-2 REGIONS CHIROPRAC 32562 [place] TIC 5 LEXX LEXX MANIPULAT YESSI TX SPINAL 1-2 REGIONS CHIROPRAC 49027 [place] TIC 5 LEXX LEXX MANIPULAT YESSI TX SPINAL 1-2 REGIONS CHIROPRAC 97518 [place] TIC 5 LEXX LEXX MANIPULAT YESSI TX SPINAL 1-2 REGIONS CHIROPRAC 28807 [place] TIC 5 LEXX [place]EXX MANIPULAT YESSI TX SPINAL 1-2 REGIONS CYTP C/V 09786 ASSOCIATE LENEMILTO AUTO THIN [address] PATHOLOGI PREPJ SCR STS LLC MNL RESCR PHYS CHIROPRAC 47370 [place] TIC 5 L[place]X LEXX MANIPULAT YESSI TX SPINAL 1-2 REGIONS CHIROPRAC 23372 [place] TIC 5 LEXX LEXX MANIPULAT YESSI TX SPINAL 1-2 REGIONS CHIROPRAC 15644 [place] TIC 5 LEXX LEXX MANIPULAT YESSI TX SPINAL 1-2 REGIONS CHIROPRAC 49688 [place] TIC 5 LEXX LEXX MANIPULAT YESSI TX SPINAL 1-2 REGIONS COMPREHEN 24106 [facility] SIVE [address] [place] [address] HOSPITAL PANEL APPL 36200 [place] MODALITY 5 LEXX LEXX 1/> [place] [address] [facility] THYROID [address] [place] [address] NG HORMONE TSH COLLECTIO 22578 [facility] N VENOUS 5 [facility] VENIPUNCT URE THERAPEUT 74488 [place] IC PX 1/> 5 [place] AREAS EACH 15 MIN EXERCISES SEDIMENTA 00492 [facility] TION RATE 5 [facility] NON-AUTOM ATED 25 36717 [facility] HYDROXY [address] [place] [address] FRACTIONS IF PERFORMED GONADOTRO 09549 [facility] PIN [address] [place] [address] QUALITATI VE BLOOD 06132 [facility] COUNT 5 [employer] AUTO&AUTO DIFRNTL WBC REMOVAL 12239 [facility] COLES NON-BIODE 5 HEALTH JAM GRADABLE MEDICAL DRUG GROUP DELIVERY IMPLANT CHIROPRAC 58909 [place] TIC 5 [place]X [place]EXX MANIPULAT YESSI TX SPINAL 1-2 REGIONS CHIROPRAC 50796 [place] TIC 5 [place] MANIPULAT YESSI TX SPINAL 1-2 REGIONS APPL 22467 [place] MODALITY 5 LEXX LEXX 1/> AREAS TRACTION MECHANICA L THERAPEUT 83274 [place] IC PX 1/> 5 [place]EXX AREAS [place] [address] [place] [address] [facility] HEAD/BRAI 5 [facility] W/O [facility] CONTRAST MATERIAL CHIROPRAC 60547 [place] TIC 5 LEXX [place]EXX MANIPULAT YESSI TX SPINAL 1-2 REGIONS CHIROPRAC 00687 [place] TIC 5 LEXX LEXX MANIPULAT YESSI TX SPINAL 1-2 REGIONS ECHO 45000 GORD[facility] ZIEGLER ZIEGLER GORDO TTHRC R-T 5 2D CONSULTIN W/WOM-MOD G SRV E COMPL SPEC&COLR D ECG 78707 [facility] ZIEGLER ZIEGLER GORDO ROUTINE 5 MD ECG CONSULTIN W/LEAST G SRV 12 LDS W/I&R INJECTION J3301 SAVANNAH MCGARRY MONE 5 [facility]ILY [facility] ACET[facility]IDE NOS [facility] 31263 [facility] KERRY 4 EXPRESS HEN INFLUENZA CARE 18592 COLES COLES TRANSVAGI 3 JAM JAM NAL ETONOGEST J7307 COLES COLES REL 3 JAM JAM CNTRACPT IMPL SYS INCL IMPL & SPL INSJ 26028 COLES COLES NON-BIODE 3 JAM JAM GRADABLE DRUG DELIVERY IMPLANT VAGINAL 93803 COLES COLES DELIVERY 3 JAM JAM ONLY W/POSTPAR LORI CARE LEVEL III 05747 ISAIAS ESPARZA OLEG SURG 3 PATHOLOGY GROSS&TIARA ROSCOPIC EXAM NEURAXIAL 52944 WHITE III WHITE III LABOR 3 ARIANNA ARIANNA ANALG/ANE S PLND VAGINAL DELIVERY MEDICAL 734 [facility] INDUCTION 3 RA[facility]IAN [facility] OF LABOR HOSP HOSP REPAIR OF 7569 [facility] OTHER 3 RASTAF[facility]IAN [facility] CURRENT HOSP HOSP OBSTETRIC LACERATIO N OTHER 7279 [facility] VACUUM 3 [facility] EXTRACTIO HOSP HOSP N INDUCTION 7301 [facility] CENTRAL LABOR 3 [facility]IA [facility] HOSP L RUPTURE MEMBRANES 13103 COLES COLES NONSTRESS 3 JAM JAM TEST CUL 86029 PATH PATH PRSMPTV 3 GROUP GROUP PTHGNC LABS [facility] ORGANISM SCRN W/COLONY ESTIMJ 72250 COLES COLES BIOPHYSIC 3 JAM JAM AL PROFILE NON-STRES S TESTING US PREG 94778 COLES COLES UTERUS 3 JAM JAM REAL TIME W/IMAGE DCMTN [facility] 90440 COLES COLES DISCHARGE 3 JAM JAM DAY MANAGEMEN T 30 MIN/< US PREG 31561 FISH FISH UTERUS 3 SADIE SADIE W/DETAIL CHAY 1ST GESTATION SBSQ 96349 [facility] 3 JAM JAM CARE/DAY 15 MINUTES INITIAL 42629 COLES COLES OBSERVATI 3 JAM JAM ON CARE/DAY 30 MINUTES GLUCOSE 78636 [address] PATH POST 3 GROUP GROUP GLUCOSE LABS [facility] DOSE INJECTION J3105 [facility] CENTRAL 3 [facility] TERBUTALI HOSP HOSP NE SULFATE UP TO 1 [place] [address] HIGH JR HIGH JR NONSTRESS 3 CUR CUR TEST INITIAL 88273 HIGH JR HIGH JR OBSERVATI 3 CUR CUR ON CARE/DAY 30 MINUTES URNLS DIP 61908 [facility] CENTRAL 3 [facility]IAN [facility] STICK/TAB HOSP HOSP LET RGNT AUTO W/O MICROSCOP Y URNLS DIP 38754 [facility]AL 3 [facility]IAN [facility] STICK/TAB HOSP HOSP LET RGNT AUTO W/O MICROSCOP Y INITIAL 07945 HIGH JR HIGH JR OBSERVATI 3 CUR CUR ON CARE/DAY 50 MINUTES 20883 [facility] NONSTRESS 3 RA[facility]IAN [facility] TEST HOSP HOSP INJECTION J3105 [facility] C[facility]TRAL 3 RASTAFARIAN RA[facility] TERBUTALI HOSP HOSP NE SULFATE UP TO 1 MG US PREG 13867 COLES COLES UTERUS 3 JAM JAM AFTER 1ST TRIMEST / GESTATION ALPHA-FET 88310 PATH PATH OPROTEIN 3 GROUP GROUP [facility] CFTR GENE 47127 RAISA HATFIELD ANALYSIS 3 [place] [address] [address] ESTRIOL 3 [facility] [place] [address] [address] PATH 3 [facility] GONADOTRO 01523 PATH PATH PIN 3 GROUP GROUP CHORIONIC [facility] QUANTITAT YESSI SKIN TEST 28970 MARIA AMIE DEMARIOKEMIE 3 JR ARIANNA RAMOS ARIANNA TUBERCULO SIS INTRADERM AL IM ADM 77533 USMAN MARY PRQ ID 3 JR ARIANNA RAMOS ARIANNA SUBQ/IM NJXS 1 VACCINE IAADIADOO 57552 USMAN HANKSKEMIE 3 JR ARIANNA RAMOS ARIANNA INFLUENZA COLLECTIO 83674 RAISA HATFIELD N VENOUS 3 BLOOD VENIPUNCT URE THERAPEUT [address] TIC/DX INJECTION SUBQ/IM Encounters Encounter Start End Date Code Location Performer Type Date OFFICE 22951 RALF ARAMBULA OUTPATIEN 7 7 T VISIT 5 MINUTES OFFICE 39446 [facility] KERRY OUTPATIEN 7 7 HEALTH T VISIT MEDICAL 15 GROUP MINUTES OFFICE 22878 [facility] OUTPATIEN 6 6 VALLEY T VISIT INTERNAL 15 MED MINUTES EMERGENCY 75648 [facility] DE[facility] 6 6 KATHRYN VISIT EMERGENCY HIGH PHYS SEVERITY& THREAT FUNCJ OFFICE 52805 [facility] NELIDA OUTPATIEN 6 6 N FAMILY HEN T VISIT PRACTICE 15 MINUTES [facility] RASTAFARIAN - 6 6 HEALTH INPATIENT [facility] RASTAFARIAN - 6 6 HEALTH OUTPATIEN [facility] T OFFICE 90141 ADITYA CHR ADITYA CHR OUTPATIEN 6 6 T NEW 20 MINUTES OFFICE 23345 [facility] COLES OUTPATIEN 6 6 HEALTH JAM T VISIT MEDICAL 15 GROUP MINUTES OFFICE 82834 [facility] MATCHESWA OUTPATIEN 6 6 HEALTH LA KAIT T VISIT MEDICAL 15 GROUP MINUTES OFFICE 52763 [facility] CONNELL OUTPATIEN 5 5 HEALTH DON T VISIT MEDICAL 15 GROUP MINUTES OFFICE 26199 [facility] OUT[facility] 5 5 T VISIT ORTHOPAED 10 IC ASSOCI MINUTES PERIODIC 73639 [facility] COLES PREVENTIV 5 5 HEALTH JAM E MED EST MEDICAL PATIENT GROUP 18-39 YRS EMERGENCY 12204 [facility] DEPT 5 5 KATHRYN THO VISIT EMERGENCY HIGH PHYS SEVERITY& THREAT [facility] [place] - 5 5 [facility] T OFFICE 09142 [facility] COLES OUTPATIEN 5 5 HEALTH JAM T VISIT MEDICAL 15 GROUP MINUTES [facility] - 5 5 [facility] T OFFICE 29720 [place] OUTPATIEN 5 5 [place] T NEW 30 MINUTES OFFICE 99006 [facility] ZIEGLER ZIEGLER [facility] OUTPATIEN 5 5 MD T VISIT 5 CONSULTIN MINUTES G SRV OFFICE 97203 SAVANNAH GREEN MONE OUTPATIEN 5 5 FAMILY T VISIT PHYSICIAN 15 S PLLC MINUTES OFFICE 44271 [facility] KERRY OUTPATIEN 4 4 EXPRESS HEN T NEW 30 CARE MINUTES OFFICE 93247 SAVANNAH PETRAS OUTPATIEN 4 4 FAMILY ALI T VISIT PHYSICIAN 15 S PLLC MINUTES OFFICE 28460 COLES COLES OUTPATIEN 3 3 JAM JAM T VISIT 15 MINUTES OFFICE 59978 COLES COLES OUTPATIEN 3 3 JAM JAM T VISIT 15 MINUTES HOSPITAL [facility] - 3 3 [facility] INPATIENT [facility]OSP OFFICE 28622 COLES COLES OUTPATIEN 3 3 JAM JAM T VISIT 15 MINUTES OFFICE 98478 COLES COLES OUTPATIEN 3 3 JAM JAM T VISIT 15 MINUTES OFFICE 54082 COLES COLES OUTPATIEN 3 3 JAM JAM T VISIT 15 MINUTES OFFICE 64719 COLES COLES OUTPATIEN 3 3 JAM JAM T VISIT 15 MINUTES OFFICE 63919 COLES COLES OUTPATIEN 3 3 JAM JAM T VISIT 15 MINUTES OFFICE 58418 COLES COLES OUTPATIEN 3 3 JAM JAM T VISIT 15 MINUTES OFFICE 42515 COLES COLES OUTPATIEN 3 3 JAM JAM T VISIT 15 MINUTES OFFICE 37247 COLES COLES OUTPATIEN 3 3 JAM JAM T VISIT 15 MINUTES OFFICE 50091 COLES COLES OUTPATIEN 3 3 JAM JAM T VISIT 15 MINUTES OFFICE 06766 COLES COLES OUTPATIEN 3 3 JAM JAM T VISIT 15 MINUTES OFFICE 34126 COLES COLES OUTPATIEN 3 3 JAM JAM T VISIT 15 MINUTES [facility]OSPITAL [facility] - 3 3 [facility] INPATIENT [facility]OS[facility] OFFICE 64254 COLES COLES OUTPATIEN 3 3 JAM JAM T VISIT 15 MINUTES OFFICE 71705 COLES COLES OUTPATIEN 3 3 JAM JAM T VISIT 15 MINUTES OFFICE 18647 COLES COLES OUTPATIEN 3 3 JAM JAM T VISIT 15 MINUTES HOSPITAL [facility] - 3 3 [facility] OUTPATIEN HOSP T OFFICE 22813 COLES COLES OUTPATIEN 3 3 JAM JAM T VISIT 15 MINUTES OFFICE 31437 COLES COLES OUTPATIEN 3 3 JAM JAM T VISIT 15 MINUTES HOSPITAL [facility] - 3 3 [facility] OUTPATIEN HOSP T OFFICE 52474 COLES COLES OUTPATIEN 3 3 JAM JAM T VISIT 15 MINUTES OFFICE 21174 COLES COLES OUTPATIEN 3 3 JAM JAM T VISIT 15 MINUTES OFFICE 84538 MCKEMIE MCKEMIE OUTPATIEN 3 3 JR ARIANNA JR ARIANNA T VISIT 15 MINUTES OFFICE 95296 COLES COLES OUTPATIEN 3 3 JAM JAM T VISIT 15 MINUTES EMERGENCY 16749 CARIBOU 2 2 [facility] T VISIT MODERATE SEVERITY [facility] 2 2 [facility] T EMERGENCY 22075 VERONICA CATALAN 2 2 EMERGENCY [facility] T VISIT HIGH/URGE NT SEVERITY
--- OUTSIDE RECORDS SUMMARY | 2016-12-11 09:20 | External Medical Summary Rpt | CCD ---
Author Author , ERIC Organization ERIC Address Unknown Phone [email or web address] Care Team Providers Care Single Needle Operator Name Role Phone [facility] Un[facility], Unavailable Unavailable [facility] Unavailable Unavailable GARVIN, [facility] Unavailable Unavailable MEDICAL GROUP, [facility] RENO, RENO Unavailable Unavailable [facility] VELASQUEZ GAR, VELASQUEZ GAR Unavailable Unavailable LONG, LONG Unavailable Unavailable RAISA TER, RAISA TER Unavailable Unavailable [facility], Unavailable Unavailable [facility], Unavailable Unavailable [facility] ZIEGLER GORDO, ZIEGLER GORDO Unavailable Unavailable KENDALL II THO, KENDALL II Unavailable Unavailable THO ISAIAS OLEG, ISAIAS OLEG Unavailable Unavailable ISAIAS OLEG, ISAIAS OLEG Unavailable Unavailable ADITYA CHR, ADITYA CHR Unavailable Unavailable ADITYA CHR, ADITYA CHR Unavailable Unavailable [facility] Unavailable Unavailable PRACTICE, [facility] GREEN MONE, GREEN MONE Unavailable Unavailable SHAHID GABRIEL, SHAHID Unavailable Unavailable GABRIEL HIGH JR CUR, HIGH JR Unavailable Unavailable CUR HIGH JR CUR, HIGH JR Unavailable Unavailable CUR KEDING, KEDING Unavailable Unavailable KEDING, KEDING Unavailable Unavailable K[facility]ING [facility], KEDING Unavailable Unavailable [facility], KEDING Unavailable Unavailable [facility], Unavailable Unavailable [facility] Unavailable Unavailable ASS[facility], [facility] Unavailable Unavailable [facility], [facility] Unavailable Unavailable SERVICES, [facility] MATCHESWALA KAIT, Unavailable Unavailable [facility] MCKEMIE JR ARIANNA, Unavailable Unavailable MCKEMIE JR ARIANNA MCKEMIE JR ARIANNA, Unavailable Unavailable MCKEMIE JR ARIANNA FISH SADIE, Unavailable Unavailable FISH SADIE FISH SADIE, Unavailable Unavailable FISH SADIE COLES JAM, COLES Unavailable Unavailable JAM COLES JAM, COLES Unavailable Unavailable JAM [facility], Unavailable Unavailable [employer] PETRAS ALI, PETRAS Unavailable Unavailable ALI [...] Diagnosis DOS Provider Status M542 CERVICALGIA 10-11-2016 KEMIRELA M791 MYALGIA 05-01-2016 [facility] R0981 NASAL 05-01-2016 [facility] R5383 OTHER 05-01-2016 [facility]UE [facility] E669 OBESITY 02-06-2016 [facility]NSPECIFIED [facility] INTERNAL MED [id number] MIGRAINE 02-06-2016 [facility] W/AURA NOT VALLEY INTRACT W/O INTERNAL STAT MED MIGRAINOSUS K219 GASTRO-ESOP 02-06-2016 [facility] H [facility]UX [facility] DISEASE INTERNAL WITHOUT MED ESOPHAGITIS S60664 MIGRAINE 01-31-2016 [facility] NOT N EMERGENCY INTRACT W/O PHYS STATUS MIGRAINOSUS H538 OTHER 01-31-2016 [facility] DISTURBANCE S R51 HEADACHE 01-31-2016 [facility] J069 ACUTE UPPER 01-08-2016 [facility] RESPIRATORY PRACTICE INFECTION UNSPECIFIED O80 ENCOUNTER 09-30-2015 [facility] FULL-TERM MEDICAL UNCOMPLICAT GROUP ED DELIVERY Z370 SINGLE LIVE 09-30-2015 [facility] [id number] 39 WEEKS 09-30-2015 [facility] [id number] MATERNAL 09-23-2015 [facility] GARVIN GROWTH 3RD TRI NA/UNS [id number] 38 WEEKS 09-23-2015 [facility] M5432 SCIATICA 09-18-2015 [facility] CHR LEFT SIDE M9904 SEGMENTAL & 09-18-2015 [facility] CHR SOMATIC DYSFUNCTION OF SACRAL REGION M9905 SEGMENTAL & 09-18-2015 AD[facility]A CHR SOMATIC DYSFUNCTION OF PELVIC REGION [id number] PAIN IN 08-26-2015 [facility] RIGHT HIP [facility] [id number] MATERNAL 08-26-2015 [facility] MEDICAL PRESENTATIO GROUP N NA/UNS [id number] 34 WEEKS 08-26-2015 [facility] J0100 ACUTE 05-13-2015 [facility] SINUSITIS MEDICAL UNSPECIFIED GROUP 7088 OTHER 09-02-2014 [facility] SPECIFIED HEALTH [facility] 7231 CERVICALGIA 07-24-2014 [facility] 7235 TORTICOLLIS 07-24-2014 [facility] [place] , UNSPECIFIED 76506 CLOSED 07-24-2014 [place] FRACTURE OF ORTHOPAEDIC UPPER END ASSOCI OF [place] V7231 ROUTINE 06-09-2014 [facility] GYNEC[facility]IC [facility] AL MEDICAL EXAMINATION GROUP V762 SCREENING 06-09-2014 [facility] FOR [facility]OLOGIST [facility] NEOPLASM OF THE CERVIX 63929 SPASMODIC 05-18-2014 [facility] TORTICOLLIS N EMERGENCY PHYS 7241 PAIN IN 05-18-2014 [facility] THORACIC N EMERGENCY SPINE PHYS 7248 OTHER 05-18-2014 [facility] SYMPTOMS N EMERGENCY REFERABLE PHYS TO BACK 4611 ACUTE 04-14-2014 [facility]INUS[facility]IS [facility]ITAL 80258 ESOPHAGEAL 04-14-2014 [facility] 7242 LUMBAGO 04-14-2014 [facility] [place] 7851 PALPITATION 04-14-2014 [facility] 59134 PRECORDIAL 04-14-2014 [facility] V2541 SURVEILLANC 03-31-2014 [facility] E PREV HEALTH PRESCRIBED MEDICAL CONTRACEPT GROUP PILL V2543 SURVEILLANC 03-31-2014 [facility] E PREV PRSC HEALTH IMPL MEDICAL SUBDERMAL GROUP CONTRACEPT 4619 ACUTE 03-13-2014 [place] [facility]INUSITIS, [facility] 7840 HEADACHE 03-13-2014 [facility] 460 ACUTE 02-17-2014 [facility] 54843 ACUTE 02-17-2014 [facility] GASTRIT[facility] EXPRESS WITHOUT CARE MENTION OF HEMORRHAGE 1104 DERMATOPHYT 01-20-2014 [facility] 6262 EXCESSIVE 10-25-2012 COLES JAM OR FREQUENT MENSTRUATIO N 45814 MATERNAL 10-25-2012 [facility] MENTAL D/O COND/COMPLI CATION V242 ROUTINE 10-25-2012 [facility] FOLLOW-UP 650 NORMAL 09-06-2012 WHITE III DELIVERY ARIANNA 38492 FIRST-DEGRE 09-06-2012 [facility] E PERINEAL LACERATION WITH DELIVERY 7019 UNSPECIFIED 09-06-2012 ISAIAS OLEG HYPERTROPHI C&ATROPHIC CONDITION SKIN V270 OUTCOME OF 09-06-2012 [facility] DELIVERY SINGLE LIVEBORN 04764 DECR 09-04-2012 [facility] MOVMNTS MGMT MOTH ANTPRTM COND/COMP V220 SUPERVISION 09-04-2012 [facility] OF NORMAL FIRST V2889 OTHER 09-04-2012 [facility] SPECIFIED SCREENING 81032 THREATENED 08-10-2012 [facility] PREMATURE LABOR ANTEPARTUM V2389 SUPERVISION 07-04-2012 FISH OF OTHER SADIE HIGH-RISK 44059 GENERALLY 06-01-2012 HIGH JR CUR CONTRACTED PELVIS ANTEPARTUM 78255 OTHER 05-03-2012 HIGH JR CUR SPECIFED COMPLICATIO N ANTEPARTUM 59688 OTH CURRENT 05-03-2012 [facility] MAT CONDS [facility] CLASSIF[facility]L [facility]OSP E ELSW ANTPRTM 04536 TOB USE D/O 05-03-2012 [facility] COMP PG [facility] /PP HOSP ANTEPARTM COND/COMP 88198 ABDOMINAL 05-03-2012 HIGH JR CUR PAIN RIGHT LOWER QUADRANT 80117 ABDOMINAL 05-03-2012 [facility] PAIN OTHER [facility] SPECIFIED HOSP SITE V741 SCREENING 03-22-2012 USMAN RAMOS EXAMINATION ARIANNA FOR PULMONARY TUBERCULOSI S 6929 CONTACT 02-03-2012 [facility] DERMATITIS& EMERGENCY OTHER SERVICES ECZEMA DUE UNSPEC CAUSE 9953 ALLERGY 02-03-2012 [facility] UNSPECIFIED EMERGENCY NOT SERVICES ELSEWHERE CLASSIFIED V141 PERSONAL 02-03-2012 [facility] OTHER ANTIBIOTIC AGENT V222 02-03-2012 [facility] Medications Na ND Rx Da Fi [...] 10 2- 4- 00 07 MA ve MN 47 20 20 39 RT 01 17 [...] Procedures Procedure DOS Code Location Performer Comment [facility] 01040 [place] TIC 7 MANIPULAT YESSI [place] SPINAL 1-2 REGIONS [facility] 44457 [place] TIC 7 MANIPULAT YESSI TX SPINAL 1-2 REGIONS [facility] 15751 [place] TIC 7 MANIPULAT YESSI TX SPINAL 1-2 REGIONS [facility] 32643 [place] TIC 7 MANIPULAT YESSI TX SPINAL 1-2 REGIONS [facility] 12319 [place] TIC 7 MANIPULAT YESSI TX SPINAL 1-2 REGIONS [facility] 72612 [place] TIC 7 MANIPULAT YESSI TX SPINAL 1-2 REGIONS [facility] 06428 [place] TIC 7 MANIPULAT YESSI TX SPINAL 1-2 REGIONS [facility] 88711 [place] TIC 7 MANIPULAT YESSI TX SPINAL 1-2 REGIONS APPL 50840 [place] MODALITY 7 1/> AREAS TRACTION MECHANICA L CHIROPRA 58844 [place] TIC 7 MANIPULAT YESSI TX SPINAL 1-2 REGIONS THERAPEUT 87657 [place] IC PX 1/> 7 AREAS EACH 15 MIN EXERCISES IAADIADOO 98896 [facility] KERRY 7 HEALTH IN[facility] MEDICAL GROUP THERAPEUT 18316 [place] IC PX 1/> 7 AREAS EACH 15 MIN EXERCISES CHIROPRAC 57357 [place] TIC 7 MANIPULAT YESSI TX SPINAL 1-2 REGIONS APPL 95302 [place] MODALITY 7 1/> [place] [address] [facility] [place] [facility] HEAD/BRAI 6 RADIOLOGY N W/O CONTRAST MATERIAL INJ J0702 [facility] SONE PRACTICE ACETATE & PHOSPHATE 3 MG THERAPEUT 28523 [facility] FAMILY HEN PROPHYLAC PRACTICE TIC/DX INJECTION SUBQ/IM OB CARE 85856 [facility] COLES ANTEPARTU 6 HEALTH JAM M VAG MEDICAL DLVR & GROUP POSTPARTU M NEURAXIAL 33034 [facility] CHANDLER LABOR 6 ANESTHESI MIO ANALG/ANE A PSC S PLND VAGINAL DELIVERY INTRODUCT [id number] [facility] ION OTH 6 [facility] PERIPHERA L VEIN PERQ DELIVERY [id number] [facility] PRODUCTS 6 [facility] CONCEPTIO N EXTERNAL US PREG 40988 [facility] UTERUS 6 [facility]ALTH [facility] TRIMEST 1 GESTATION CHIROPRAC 31215 ADITYA CHR ADITYA CHR TIC 6 MANIPULAT YESSI TX SPINAL 1-2 REGIONS 12322 [facility] COLES [address] [facility] GROUP 1/> FETUSES RADIOLOGI 72972 GARVIN VELASQUEZ GAR C 5 EXAMINATI ORTHOPAED ON KNEE IC ASSOCI 1/2 VIEWS CHIROPRAC 84045 [facility] [place] TIC 5 [place] MANIPULAT YESSI TX SPINAL 1-2 REGIONS CHIROPRAC 42791 [facility] [place] TIC 5 LEXX LEXX MANIPULAT YESSI TX SPINAL 1-2 REGIONS CHIROPRAC 93808 [place] TIC 5 LEXX LEXX MANIPULAT YESSI TX SPINAL 1-2 REGIONS CHIROPRAC 30927 [place] [place] TIC 5 LEXX LEXX MANIPULAT YESSI TX SPINAL 1-2 REGIONS CHIROPRAC 21908 [place] TIC 5 LEXX LEXX MANIPULAT YESSI TX SPINAL 1-2 REGIONS CHIROPRAC 38549 [facility] TIC 5 LEXX LEXX MANIPULAT YESSI TX SPINAL 1-2 REGIONS CHIROPRAC 99257 [place] TIC 5 LEXX LEXX MANIPULAT YESSI TX SPINAL 1-2 REGIONS CYTP C/V 60135 [facility] [place] AUTO THIN [address] LYR PATHOLOGI PREPJ SCR STS LLC MNL RESCR PHYS CHIROPRAC 27848 [place] TIC 5 LEXX LEXX MANIPULAT YESSI TX SPINAL 1-2 REGIONS CHIROPRAC 33200 [place] TIC 5 LEXX LEXX MANIPULAT YESSI TX SPINAL 1-2 REGIONS CHIROPRAC 53169 [place] TIC 5 LEXX LEXX MANIPULAT YESSI TX SPINAL 1-2 REGIONS CHIROPRAC 45592 [place] TIC 5 LEXX LEXX MANIPULAT YESSI TX SPINAL 1-2 REGIONS COMPREHEN 01343 [facility] LIAM SIVE [address] [place] [address] PANEL APPL 17568 [facility] [place] MODALITY 5 LEXX LEXX 1/> AREAS TRACTION MECHANICA L BLOOD 76526 [facility] FR[facility] COUNT 5 [facility] AUTO&AUTO DIFRNTL WBC SEDIMENTA 48388 [facility] T[facility] RATE 5 [facility] NON-AUTOM ATED GONADOTRO 54537 [facility] PIN [address] [place] [address] QUALITATI VE THERAPEUT 75334 [place] [place] IC PX 1/> 5 [place] AREAS EACH 15 MIN EXERCISES COLLECTIO 84077 [facility] N VENOUS [address] [address] [facility] THYROID 5 [facility] NG [facility]ORM[facility] TSH 25 41815 [facility] HYDROXY 5 [facility] INCLUDES HOSPITAL HOSPITAL FRACTIONS IF PERFORMED REMOVAL 77404 [facility] COLES NON-BIODE 5 HEALTH JAM GRADABLE MEDICAL DRUG GROUP DELIVERY IMPLANT CHIROPRAC 12060 [place] TIC 5 [place] MANIPULAT YESSI TX SPINAL 1-2 REGIONS CHIROPRAC 63117 [place] TIC 5 L[place]X [place] MANIPULAT YESSI TX SPINAL 1-2 REGIONS APPL 95421 [facility] [place] MODALITY 5 LEXX LEXX 1/> AREAS TRACTION MECHANICA L THERAPEUT 86462 [facility] [place] IC PX 1/> 5 L[place]X LEXX AREAS EACH 15 MIN EXERCISES CHIROPRAC 94510 [facility] [place] TIC 5 LEXX [place]EXX MANIPULAT YESSI TX SPINAL 1-[address] [place] [address] [facility] [place] SHAHID HEAD/BRAI 5 RADIOLOGY GABRIEL N W/O CONTRAST MATERIAL CHIROPRAC 50426 [place] [place] TIC 5 LEXX LEXX MANIPULAT YESSI TX SPINAL 1-2 REGIONS ECHO 12390 GORDO ZIEGLER ZIEGLER GORDO TTHRC R-T 5 2D CONSULTIN W/WOM-MOD G SRV E COMPL SPEC&COLR D ECG 07022 GORD[facility] ZIEGLER ZIEGLER GORDO ROUTINE 5 MD ECG CONSULTIN W/LEAST G SRV 12 LDS W/I&R INJECTION J3301 SAVANNAH MCGARRY MONE 5 FAMILY [facility] ACETONIDE NOS 10 MG [facility] 07911 [facility] KERRY 4 [place] [address] COLES COLES TRANSVAGI 3 JAM JAM NAL INSJ 15250 COLES COLES NON-BIODE 3 JAM JAM GRADABLE DRUG DELIVERY IMPLANT ETONOGEST J7307 COLES COLES REL 3 JAM JAM CNTRACPT IMPL SYS INCL IMPL & SPL VAGINAL 71640 COLES COLES DELIVERY 3 JAM JAM ONLY W/POSTPAR LORI CARE LEVEL III 26953 ISAIAS ESPARZA OLEG SURG 3 PATHOLOGY GROSS&TIARA ROSCOPIC EXAM NEURAXIAL 55862 WHITE III WHITE III LABOR 3 ARIANNA ARIANNA ANALG/ANE S PLND VAGINAL DELIVERY OTHER 7279 [facility] VACUUM 3 [facility] EXTRACTIO HOSP HOSP N INDUCTION 7301 [facility] LABOR 3 [facility] HOSP L RUPTURE MEMBRANES MEDICAL 734 [facility] INDUCTION 3 [facility] OF LABOR HOSP HOSP REPAIR OF 7569 [facility] OTHER 3 [facility] CURRENT HOSP HOSP OBSTETRIC LACERATIO N 42652 COLES COLES NONSTRESS 3 JAM JAM TEST CUL 76908 PATH PATH PRSMPTV 3 GROUP GROUP PTHGNC LABS iLost ORGANISM SCRN W/COLONY ESTIMJ 83028 COLES COLES BIOPHYSIC 3 JAM JAM AL PROFILE NON-STRES S TESTING [place] PREG 39020 COLES COLES UTERUS 3 JAM JAM REAL TIME W/IMAGE DCMTN [facility] 53635 COLES COLES DISCHARGE 3 JAM JAM DAY MANAGEMEN T 30 MIN/< SBSQ 29460 COLES COLES HOSPITAL 3 JAM JAM CARE/DAY 15 MINUTES US PREG 43875 FISH FISH UTERUS 3 SADIE SADIE W/DETAIL CHAY 1ST GESTATION INITIAL 91783 COLES COLES OBSERVATI 3 JAM JAM ON CARE/DAY 30 MINUTES GLUCOSE 10757 PATH PATH POST 3 GROUP GROUP GLUCOSE LABS iLost DOSE URNLS DIP 43015 [facility] 3 [facility] STICK/TAB HOSP HOSP LET RGNT AUTO W/O MICROSCOP Y INITIAL 78258 HIGH JR HIGH JR OBSERVATI 3 CUR CUR ON CARE/DAY 30 MINUTES INJECTION J3105 [facility] 3 [facility] TERBUTALI HOSP HOSP NE SULFATE UP TO 1 MG 76910 HIGH JR HIGH JR NONSTRESS 3 CUR CUR TEST 24616 [facility] NONSTRESS 3 [facility] TEST HOSP HOSP INITIAL 08544 HIGH JR HIGH JR OBSERVATI 3 CUR CUR ON CARE/DAY 50 MINUTES INJECTION J3105 [facility] 3 [facility] TERBUTALI [facility]OSP HOSP NE SULFATE UP TO 1 MG URNLS DIP 20291 [facility] 3 [facility] STICK/TAB HOSP HOSP LET RGNT AUTO W/O MICROSCOP Y US PREG 19992 COLES COLES UTERUS 3 JAM JAM AFTER 1ST TRIMEST GESTATION CFTR GENE 61991 RAISA HATFIELD ANALYSIS [address] [place] [address] [address] ESTRIOL 3 GROUP [facility] ALPHA-FET 30664 PATH PATH OPROTEIN 3 GROUP GROUP SERUM [facility] GONADOTRO [address]07 [address] PATH PIN 3 GROUP GROUP CHORIONIC [facility]S [facility] QUANTITAT [place] INHIBIN A 95800 PATH PATH 3 GROUP GROUP [facility] IM ADM 82704 USMAN MARY PRQ ID 3 JR ARIANNA JR ARIANNA SUBQ/IM NJXS 1 VACCINE SKIN TEST 96598 MARIA AMIVito HANKSKEMIE 3 JR ARIANNA JR ARIANNA TUBERCULO SIS INTRADERM AL IAADIADOO 75410 USMAN MARY 3 JR ARIANNA JR ARIANNA INFLUENZA COLLECTIO 35554 RAISA HATFIELD N VENOUS 3 BLOOD VENIPUNCT URE THERAPEUT [address] TIC/DX INJECTION SUBQ/IM Encounters Encounter Start End Date Code Location Performer Type Date OFFICE 75331 [facility]F [facility]AM[facility] OUTPATIEN 7 7 T VISIT 5 MINUTES OFFICE 39471 [facility] OUTPATIEN 7 7 HEALTH T VISIT MEDICAL 15 GROUP MINUTES OFFICE 47490 [facility] OUTPATIEN 6 6 VALLEY T VISIT INTERNAL 15 MED MINUTES EMERGENCY 25166 [facility] DEPT 6 6 KATHRYN VISIT EMERGENCY HIGH PHYS SEVERITY& THREAT FUNC OFFICE 94915 [facility] OUTPATIEN 6 6 N FAMILY HEN T VISIT PRACTICE 15 MINUTES [facility] - 6 6 HEALTH INPATIENT [facility] - 6 6 HEALTH OUTPATIEN GARVIN T OFFICE 97300 AD[facility]A CHR ADITYA CHR OUTPATIEN 6 6 T NEW 20 MINUTES OFFICE 40498 [facility] COLES OUTPATIEN 6 6 HEALTH JAM T VISIT MEDICAL 15 GROUP MINUTES OFFICE 24924 [facility] MATCHESWA OUTPATIEN 6 6 HEALTH LA KAIT T VISIT MEDICAL 15 GROUP MINUTES OFFICE 81414 [facility] CONNELL OUTPATIEN 5 5 HEALTH DON T VISIT MEDICAL 15 GROUP MINUTES OFFICE 35874 [facility] 5 T VISIT ORTHOPAED 10 IC ASSOCI MINUTES PERIODIC 48892 [facility] COLES PREVENTIV 5 5 HEALTH JAM E MED EST MEDICAL PATIENT GROUP 18-39 YRS EMERGENCY 46389 [facility] DEPT 5 5 KATHRYN THO VISIT EMERGENCY HIGH PHYS SEVERITY& THREAT [facility] - 5 5 [facility] OFFICE 47347 [facility] COLES OUTPATIEN 5 5 HEALTH JAM T VISIT MEDICAL 15 GROUP MINUTES [facility] - 5 5 [facility] OFF[facility] 26134 [facility] OUTPATIEN 5 5 [place] T NEW 30 MINUTES OFFICE 54717 [facility] ZIEGLER ZIEGLER GORDO OUTPATIEN 5 5 MD T VISIT 5 CONSULTIN MINUTES G SRV OFFICE 19851 SAVANNAH GREEN MONE OUTPATIEN 5 5 FAMILY T VISIT PHYSICIAN 15 S PLLC MINUTES OFFICE 48070 [facility] K[facility] OUTPATIEN 4 4 EXPRESS HEN T NEW 30 CARE MINUTES OFFICE 67755 SAVANNAH PETRAS OUTPATIEN 4 4 FAMILY ALI T VISIT PHYSICIAN 15 S PLLC MINUTES OFFICE 20237 COLES COLES OUTPATIEN 3 3 JAM JAM T VISIT 15 MINUTES OFFICE 79004 COLES COLES OUTPATIEN 3 3 JAM JAM T VISIT 15 MINUTES [facility]OSPITAL [facility] - 3 3 [facility] INPATIENT HOSP OFFICE 37410 COLES COLES OUTPATIEN 3 3 JAM JAM T VISIT 15 MINUTES OFFICE 44328 COLES COLES OUTPATIEN 3 3 JAM JAM T VISIT 15 MINUTES OFFICE 95562 COLES COLES OUTPATIEN 3 3 JAM JAM T VISIT 15 MINUTES OFFICE 01122 COLES COLES OUTPATIEN 3 3 JAM JAM T VISIT 15 MINUTES OFFICE 42246 COLES COLES OUTPATIEN 3 3 JAM JAM T VISIT 15 MINUTES OFFICE 67795 COLES COLES OUTPATIEN 3 3 JAM JAM T VISIT 15 MINUTES OFFICE 81205 COLES COLES OUTPATIEN 3 3 JAM JAM T VISIT 15 MINUTES OFFICE 52735 COLES COLES OUTPATIEN 3 3 JAM JAM T VISIT 15 MINUTES OFFICE 28383 COLES COLES OUTPATIEN 3 3 JAM JAM T VISIT 15 MINUTES OFFICE 04218 COLES COLES OUTPATIEN 3 3 JAM JAM T VISIT 15 MINUTES OFFICE 72282 COLES COLES OUTPATIEN 3 3 JAM JAM T VISIT 15 MINUTES [facility] - 3 3 [facility] INPATIENT [facility]OS[facility] OFFICE 89648 COLES COLES OUTPATIEN 3 3 JAM JAM T VISIT 15 MINUTES OFFICE 23127 COLES COLES OUTPATIEN 3 3 JAM JAM T VISIT 15 MINUTES OFFICE 91775 COLES COLES OUTPATIEN 3 3 JAM JAM T VISIT 15 MINUTES [facility]OSPITAL [facility] - 3 3 [facility] OUTPATIEN HOSP T OFFICE 98404 COLES COLES OUTPATIEN 3 3 JAM JAM T VISIT 15 MINUTES OFFICE 85051 COLES COLES OUTPATIEN 3 3 JAM JAM T VISIT 15 MINUTES [facility]OSPITAL [facility] - 3 3 [facility] OUTPATIEN HOSP T OFFICE 01214 COLES COLES OUTPATIEN 3 3 JAM JAM T VISIT 15 MINUTES OFFICE 69807 COLES COLES OUTPATIEN 3 3 JAM JAM T VISIT 15 MINUTES OFFICE 31097 MCKEMIE MCKEMIE OUTPATIEN 3 3 JR ARIANNA JR ARIANNA T VISIT 15 MINUTES OFFICE 26080 COLES COLES OUTPATIEN 3 3 JAM JAM T VISIT 15 MINUTES EMERGENCY 88002 [facility] 2 2 [facility] T VISIT MODERATE SEVERITY [facility] 2 2 [facility] T EMERGENCY 43045 VERON[facility] CATALAN 2 2 EMER[facility]Y [facility] T VISIT HIGH/URGE NT SEVERITY
--- OUTSIDE RECORDS SUMMARY | 2016-12-11 09:20 | External Medical Summary Rpt | CCD ---
Author Author , ERIC Organization ERIC Address Unknown Phone [email or web address] Care Team Providers Care Blending Tank Helper Name Role Phone [facility]OCIATED Unavailable [facility], Unavailable Unavailable [facility] Unavailable Unavailable [place], [facility] Unavailable Unavailable MEDICAL GROUP, [facility] RENO, RENO Unavailable Unavailable [facility] Unavailable Unavailable [facility], [facility] VELASQUEZ GAR, VELASQUEZ GAR Unavailable Unavailable LONG, LONG Unavailable Unavailable RAISA TER, RAISA TER Unavailable Unavailable [facility], Unavailable Unavailable [facility], Unavailable Unavailable [facility] ZIEGLER GORDO, ZIEGLER GORDO Unavailable Unavailable KENDALL II THO, KENDALL II Unavailable Unavailable THO ISAIAS OLEG, ISAIAS OLEG Unavailable Unavailable ISAIAS OLEG, ISAIAS OLEG Unavailable Unavailable ADITYA CHR, ADITYA CHR Unavailable Unavailable ADITYA CHR, ADITYA CHR Unavailable Unavailable [facility] Unavailable Unavailable PRACTICE, [facility] GREEN MONE, GREEN MONE [...] [facility]IC Unavailable Unavailable ASSOCI, [facility] Unavailable Unavailable INTERNAL MED, [facility] MED [facility] Unavailable Unavailable SERVICES, [facility] MATCHESWALA KAIT, Unavailable Unavailable [facility] MCKEMIE JR ARIANNA, Unavailable Unavailable MCKEMIE JR ARIANNA MCKEMIE JR ARIANNA, Unavailable Unavailable MCKEMIE JR ARIANNA FISH SADIE, Unavailable Unavailable FISH SADIE FISH SADIE, Unavailable Unavailable FISH SADIE COLES JAM, COLES Unavailable Unavailable JAM COLES JAM, COLES Unavailable Unavailable J[facility], Unavailable [facility]available [facility] PETRAS ALI, PETRAS Unavailable Unavailable ALI [...] M542 CERVICALGIA 10-11-2016 KEMIRELA M791 MYALGIA 05-01-2016 [facility] R0981 NASAL 05-01-2016 [facility] R5383 OTHER 05-01-2016 [facility] FATIGUE [facility] E669 OBESITY 02-06-2016 [facility] UNSPECIFIED [facility]LEY INTERNAL MED [id number] MIGRAINE 02-06-2016 [facility] W/AURA NOT VALLEY INTRACT W/O INTERNAL STAT MED MIGRAINOSUS K219 GASTRO-ESOP 02-06-2016 [facility] H REFLUX [facility] DISEASE INTERNAL WITHOUT MED ESOPHAGITIS [id number] MIGRAINE 01-31-2016 [facility] NOT N EMERGENCY INTRACT W/O PHYS STATUS MIGRAINOSUS H538 OTHER 01-31-2016 [facility] DISTURBANCE S R51 HEADACHE 01-31-2016 [facility] J069 ACUTE UPPER 01-08-2016 [facility] RESPIRATORY PRACTICE INFECTION UNSPECIFIED O80 ENCOUNTER 09-30-2015 [facility] FULL-TERM MEDICAL UNCOMPLICAT GROUP ED DELIVERY Z370 SINGLE LIVE 09-30-2015 [facility] [id number] 39 WEEKS 09-30-2015 [facility] [id number] MATERNAL 09-23-2015 [facility] [place] GROWTH 3RD TRI NA/UNS [id number] 38 WEEKS 09-23-2015 [facility] M5432 SCIATICA 09-18-2015 ADITYA CHR LEFT SIDE M9904 SEGMENTAL & 09-18-2015 AD[facility]A CHR SOMATIC DYSFUNCTION OF SACRAL REGION M9905 SEGMENTAL & 09-18-2015 ADITYA CHR SOMATIC DYSFUNCTION OF PELVIC REGION C71636 PAIN IN 08-26-2015 [facility] RIGHT HIP [facility] [id number] MATERNAL 08-26-2015 [facility] MEDICAL PRESENTATIO GROUP N NA/UNS [id number] WEEKS 08-26-2015 [facility] J0100 ACUTE 05-13-2015 [facility] SINUS[facility]IS MEDICAL UNSPECIFIED GROUP 7088 OTHER 09-02-2014 [facility] SPECIFIED [facility] 7231 CERVICALGIA 07-24-2014 [facility] [place] 7235 TORTICOLLIS 07-24-2014 [facility] [place] , UNSPECIFIED 50439 CLOSED 07-24-2014 [place] FRACTURE OF ORTHOPAEDIC UPPER END ASSOCI OF [place] V7231 ROUTINE 06-09-2014 [facility] GYNECOLOGIC [facility]ALTH AL MEDICAL EXAMINATION GROUP V762 SCREENING 06-09-2014 [facility] FOR PATHOLOGIST [facility]IGNANT [facility] NEOPLASM OF THE CERVIX 89584 SPASMODIC 05-18-2014 [facility] TORTICOLLIS N EMERGENCY PHYS 7241 PAIN IN 05-18-2014 [facility] THORACIC N EMERGENCY SPINE PHYS 7248 OTHER 05-18-2014 [facility] SYMPTOMS N EMERGENCY REFERABLE PHYS TO BACK 4611 ACUTE 04-14-2014 [facility] 95889 ESOPHAGEAL 04-14-2014 [facility] REFLUX [facility] 7242 LUMBAGO 04-14-2014 [place] [place] 7851 PALPITATION 04-14-2014 [facility] 12945 PRECORDIAL 04-14-2014 [facility] PAIN [facility] V2541 SURVEILLANC 03-31-2014 [facility] E PREV HEALTH PRESCRIBED MEDICAL CONTRACEPT GROUP PILL V2543 SURVEILLANC 03-31-2014 [facility] E PREV PRSC HEALTH IMPL MEDICAL SUBDERMAL GROUP CONTRACEPT 4619 ACUTE 03-13-2014 [facility] SINUSITIS, [facility] 7840 HEADACHE 03-13-2014 [facility] 460 ACUTE 02-17-2014 [facility] NASOPHARYNG [facility] IT[facility] 07221 ACUTE 02-17-2014 [facility] GASTRITIS EXPRESS WITHOUT CARE MENTION OF HEMORRHAGE 1104 DERMATOPHYT 01-20-2014 [place] [facility] 6262 EXCESSIVE 10-25-2012 COLES JAM OR FREQUENT MENSTRUATIO N 20201 MATERNAL 10-25-2012 COLES [facility] MENTAL D/O COND/COMPLI CATION V242 ROUTINE 10-25-2012 COL[facility] FOLLOW-UP 650 NORMAL 09-06-2012 WHITE III DELIVERY ARIANNA 08365 FIRST-DEGRE 09-06-2012 COLES JAM E PERINEAL LACERATION WITH DELIVERY 7019 UNSPECIFIED 09-06-2012 ISAIAS OLEG HYPERTROPHI C&ATROPHIC CONDITION SKIN V270 OUTCOME OF 09-06-2012 COLES JAM DELIVERY SINGLE LIVEBORN 28726 DECR 09-04-2012 [facility] MOVMNTS MGMT MOTH ANTPRTM COND/COMP V220 SUPERVISION 09-04-2012 COLES [facility] OF NORMAL FIRST V2889 OTHER 09-04-2012 [facility] SPECIFIED SCREENING 89452 THREATENED 08-10-2012 [facility] PREMATURE LABOR ANTEPARTUM V2389 SUPERVISION 07-04-2012 FISH OF OTHER SADIE HIGH-RISK 83709 GENERALLY 06-01-2012 HIGH JR CUR CONTRACTED PELVIS ANTEPARTUM 46410 OTHER 05-03-2012 HIGH JR CUR SPECIFED COMPLICATIO N ANTEPARTUM 59023 OTH CURRENT 05-03-2012 [facility] MAT CONDS [facility] CLASSIFIABL HOSP E ELSW ANTPRTM 41950 TOB USE D/O 05-03-2012 [facility] COMP PG [facility] /PP HOSP ANTEPARTM COND/COMP 57785 ABDOMINAL 05-03-2012 HIGH JR CUR PAIN RIGHT LOWER QUADRANT 79411 ABDOMINAL 05-03-2012 [facility] PAIN OTHER [facility] SPECIFIED HOSP SITE V741 SCREENING 03-22-2012 USMAN RAMOS EXAMINATION ARIANNA FOR PULMONARY TUBERCULOSI S 6929 CONTACT 02-03-2012 [facility] DERMATITIS& EMERGENCY OTHER SERVICES ECZEMA DUE UNSPEC CAUSE 9953 ALLERGY 02-03-2012 [facility] UNSPECIFIED EMERGENCY NOT SERVICES ELSEWHERE CLASSIFIED V141 PERSONAL 02-03-2012 [facility] OTHER ANTIBIOTIC AGENT V222 02-03-2012 [facility] Medications Na ND Rx Da Fi [...] 10 2- 4- 00 07 MA ve MA 47 20 20 39 RT 01 17 [...] Procedures Procedure DOS Code Location Performer Comment [facility] 11368 [place] T[place] 7 MANIPULAT YESSI TX SPINAL 1-2 REGIONS [facility] 92125 [place] TIC 7 MANIPULAT YESSI TX SPINAL 1-2 REGIONS [facility] 55438 [place] TIC 7 MANIPULAT YESSI TX SPINAL 1-2 REGIONS [facility] 14951 [place] TIC 7 MANIPULAT YESSI TX SPINAL 1-2 REGIONS [facility] 01273 [place] TIC 7 MANIPULAT YESSI TX SPINAL 1-2 REGIONS [facility] 18938 [place] TIC 7 MANIPULAT YESSI TX SPINAL 1-2 REGIONS [facility] 10974 [place] TIC 7 MANIPULAT YESSI TX SPINAL 1-2 REGIONS [facility] 76210 [place] TIC 7 MANIPULAT YESSI TX SPINAL 1-2 REGIONS APPL 99790 [place] MODALITY 7 1/> AREAS TRACTION MECHANICA L CHIROPRA 18880 [place] TIC 7 MANIPULAT YESSI TX SPINAL 1-2 REGIONS THERAPEUT 94882 [place] IC PX 1/> 7 AREAS EACH 15 MIN EXERCISES IAADIADOO 59773 [facility] KERRY 7 HEALTH INFLUENZA MEDICAL GROUP THERAPEUT 76084 [place] IC PX 1/> 7 AREAS EACH 15 MIN EXERCISES CHIROPRAC 52328 [place] TIC 7 MANIPULAT YESSI TX SPINAL 1-2 REGIONS APPL 94754 [place] MODALITY 7 1/> [place] [address] [facility] [place] LONG HEAD/BRAI 6 RADIOLOGY N W/O CONTRAST MATERIAL INJ J0702 [facility] N FAMILY HEN SONE PRACTICE ACETATE & PHOSPHATE 3 MG THERAPEUT 28249 [facility] FAMILY HEN PROPHYLAC PRACTICE TIC/DX INJECTION SUBQ/IM OB CARE 23694 [facility] COLES ANTEPARTU 6 HEALTH JAM M VAG MEDICAL DLVR & GROUP POSTPARTU M NEURAXIAL 99299 [facility] CHANDLER LABOR 6 ANESTHESI MIO ANALG/ANE A PSC S PLND VAGINAL DELIVERY INTRODUCT [id number] [facility] ION OTH 6 [facility] PERIPHERA L VEIN PERQ DELIVERY [id number] [facility] PRODUCTS 6 [facility] OF [facility] CONCEPTIO N EXTERNAL US PREG 72302 [facility] UTERUS 6 HEALTH HEALTH AFTER [facility] TRIMEST 1 GESTATION CHIROPRAC 48180 ADITYA CHR ADITYA CHR TIC 6 MANIPULAT YESSI TX SPINAL 1-2 REGIONS 37192 [facility] COLES 6 [facility]ALTH [facility] MEDICAL LIMITED GROUP 1/> FETUSES RADIOLOGI 70138 [place] VELASQUEZ GAR C 5 EXAMINATI ORTHOPAED ON KNEE IC ASSOCI 1/2 VIEWS CHIROPRAC 96762 [place] TIC 5 L[place]X [place]EX[place] MANIPULAT YESSI TX SPINAL 1-2 REGIONS CHIROPRAC 44240 [place] TIC 5 LEXX LEXX MANIPULAT YESSI TX SPINAL 1-2 REGIONS CHIROPRAC 44685 [place] TIC 5 LEXX LEXX MANIPULAT YESSI TX SPINAL 1-2 REGIONS CHIROPRAC 45827 [place] TIC 5 LEXX LEXX MANIPULAT YESSI TX SPINAL 1-2 REGIONS CHIROPRAC 78188 [place] TIC 5 LEXX LEXX MANIPULAT YESSI TX SPINAL 1-2 REGIONS CHIROPRAC 59370 [place] TIC 5 LEXX LEXX MANIPULAT YESSI TX SPINAL 1-2 REGIONS CHIROPRAC 19481 [place] TIC 5 LEXX LEXX MANIPULAT YESSI TX SPINAL 1-2 REGIONS CYTP C/V 10021 ASSOCIATE [place] AUTO THIN [address] LYR PATHOLOGI PREPJ SCR STS LLC MNL RESCR PHYS CHIROPRAC 64040 [place] TIC 5 LEXX LEXX MANIPULAT YESSI TX SPINAL 1-2 REGIONS CHIROPRAC 72595 [place] TIC 5 LEXX LEXX MANIPULAT YESSI TX SPINAL 1-2 REGIONS CHIROPRAC 41556 [place] TIC 5 LEXX LEXX MANIPULAT YESSI TX SPINAL 1-2 REGIONS CHIROPRAC 19627 [place] TIC 5 LEXX LEXX MANIPULAT YESSI TX SPINAL 1-2 REGIONS COMPREHEN 12214 [facility] LIAM SIVE [address] [place] [address] PANEL APPL 24498 [place] MODALITY 5 LEXX LEXX 1/> AREAS TRACTION MECHANICA L BLOOD 20418 [facility] FRIDAURBON COUNT 5 [facility] AUTO&AUTO DIFRNTL WBC SEDIMENTA 08234 [facility] T[facility]ATE 5 [facility] NON-AUTOM ATED GONADOTRO 17403 [facility] PIN [address] [place] [address] QUALITATI VE THERAPEUT 56565 [place] IC PX 1/> 5 [place] AREAS EACH 15 MIN EXERCISES COLLECTIO 94843 [facility] N VENOUS 5 [facility] [place] [address] [facility] THYROID 5 [facility] NG HORMONE TSH 25 48893 [facility] HYDROXY 5 COMM[facility] INCLUDES HOSPITAL HOSPITAL FRACTIONS IF PERFORMED REMOVAL 86487 [facility] COLES NON-BIODE 5 HEALTH JAM GRADABLE MEDICAL DRUG GROUP DELIVERY IMPLANT CHIROPRAC 47952 [place] TIC 5 LEXX LEXX MANIPULAT YESSI TX SPINAL 1-2 REGIONS CHIROPRAC 78057 [place] TIC 5 LEXX LEXX MANIPULAT YESSI TX SPINAL 1-2 REGIONS APPL 02799 [place] MODALITY 5 LEXX LEXX 1/> AREAS TRACTION MECHANICA L THERAPEUT 21313 [place] IC PX 1/> 5 [place]X [place]EXX AREAS EACH 15 MIN EXERCISES CHIROPRAC 84295 [place] TIC 5 LEXX LEXX MANIPULAT YESSI TX SPINAL 1-[address] [place] [address] [facility] [place] SHAHID HEAD/BRAI 5 RADIOLOGY GABRIEL N W/O CONTRAST MATERIAL CHIROPRAC 60800 [place] TIC 5 LEXX LEXX MANIPULAT YESSI TX SPINAL 1-2 REGIONS ECHO 91858 GORD[facility] ZIEGLER ZIEGLER GORDO TTHRC R-T 5 2D CONSULTIN W/WOM-MOD G SRV E COMPL SPEC&COLR D ECG 82185 [facility] ZIEGLER ZIGELER GORDO ROUTINE 5 MD ECG CONSULTIN W/LEAST G SRV 12 LDS W/I&R INJECTION J3301 SAVANNAH MCGARRY MONE 5 [facility] PH[facility] ACETONIDE NOS 10 MG IAAMERGED WITH [facility] 79373 [facility] KERRY 4 [place] [address] COLES COLES TRANSVAGI 3 JAM JAM NAL INSJ 52035 COLES COLES NON-BIODE 3 JAM JAM GRADABLE DRUG DELIVERY IMPLANT ETONOGEST J7307 COLES COLES REL 3 JAM JAM CNTRACPT IMPL SYS INCL IMPL & SPL VAGINAL 06616 COLES COLES DELIVERY 3 JAM JAM ONLY W/POSTPAR LORI CARE LEVEL III 25771 ISAIAS ESPARZA OLEG SURG 3 PATHOLOGY GROSS&TIARA ROSCOPIC EXAM NEURAXIAL 11902 WHITE III WHITE III LABOR 3 ARIANNA ARIANNA ANALG/ANE S PLND VAGINAL DELIVERY OTHER 7279 [facility] VACUUM 3 [facility] EXTRACTIO HOSP HOSP N INDUCTION 7301 [facility] LABOR 3 [facility] ARTIFICIA HOSP HOSP L RUPTURE MEMBRANES MEDICAL 734 [facility] INDUCTION 3 VOODOO [facility] OF LABOR HOSP HOSP REPAIR OF 7569 [facility] OTHER 3 VOODOO [facility] CURRENT HOSP HOSP OBSTETRIC LACERATIO N 14501 COLES COLES NONSTRESS 3 JAM JAM TEST CUL 47204 PATH PATH PRSMPTV 3 GROUP GROUP PTHGNC LABS [facility] ORGANISM SCRN W/COLONY ESTIMJ 84854 COLES COLES BIOPHYSIC 3 JAM JAM AL PROFILE NON-STRES S TESTING US PREG 96718 COLES COLES UTERUS 3 JAM JAM REAL TIME W/IMAGE DCMTN [facility] 19085 COLES COLES DISCHARGE 3 JAM JAM DAY MANAGEMEN T 30 MIN/< SBSQ 99202 COLES COLES HOSPITAL 3 JAM JAM CARE/DAY 15 MINUTES US PREG 04191 FISH FISH UTERUS 3 SADIE SADIE W/DETAIL CHAY 1ST GESTATION INITIAL 44118 COLES COLES OBSERVATI 3 JAM JAM ON CARE/DAY 30 MINUTES GLUCOSE 84896 PATH PATH POST 3 GROUP GROUP GLUCOSE LABS [facility] DOSE URNLS DIP 52497 [facility] 3 [facility] STICK/TAB HOSP HOSP LET RGNT AUTO W/O MICROSCOP Y INITIAL 82951 HIGH JR HIGH JR OBSERVATI 3 CUR CUR ON CARE/DAY 30 MINUTES INJECTION J3105 [facility] 3 [facility] TERBUTALI HOSP HOSP [place] 1 MG [address] HIGH JR HIGH JR NONSTRESS 3 CUR CUR TEST 00300 [facility] NONSTRESS 3 [facility] TEST HOSP HOSP INITIAL 24909 HIGH JR HIGH JR OBSERVATI 3 CUR CUR ON CARE/DAY 50 MINUTES INJECTION J3105 [facility] 3 [facility] TERBUTALI HOSP HOSP NE SULFATE UP TO 1 MG URNLS DIP 75002 [facility] 3 [facility] STICK/TAB HOSP HOSP LET RGNT AUTO W/O MICROSCOP Y US PREG 19468 COLES COLES UTERUS 3 JAM JAM AFTER 1ST TRIMEST GESTATION CFTR GENE 77015 RAISA HATFIELD ANALYSIS [address] [place] [address] [address] ESTRIOL 3 GROUP [facility] ALPHA-FET 33034 PATH PATH OPROTEIN 3 GROUP GROUP SERUM [facility] GONADOTRO [address] [address] PATH PIN 3 GROUP GROUP CHORIONIC [facility]S [facility] [place] [address] [address] PATH 3 GROUP [facility] IM ADM 30649 USMAN MARY PRQ ID 3 JR ARIANNA JR ARIANNA SUBQ/IM NJXS 1 VACCINE SKIN TEST 44294 MARIA AMIVito HANKSKEMIE 3 JR ARIANNA JR ARIANNA TUBERCULO SIS INTRADERM AL IAADIADOO 65652 USMAN MARY 3 JR ARIANNA JR ARIANNA INFLUENZA COLLECTIO 75963 RAISA HATFIELD N VENOUS 3 BLOOD VENIPUNCT URE THERAPEUT [address] TIC/DX INJECTION SUBQ/IM Encounters Encounter Start End Date Code Location Performer Type Date OFFICE 47214 [facility]ALF ARAMBULA OUTPATIEN 7 7 T VISIT 5 MINUTES OFFICE 97464 [facility] KERRY OUTPATIEN 7 7 HEALTH T VISIT MEDICAL 15 GROUP MINUTES OFFICE 11836 [facility] OUTPATIEN 6 6 VALLEY T VISIT INTERNAL 15 MED MINUTES EMERGENCY 68007 [facility] DEPT 6 6 KATHRYN VISIT EMERGENCY HIGH PHYS SEVERITY& THREAT FUNC OFFICE 12996 [facility] OUTPATIEN 6 6 N FAMILY HEN T VISIT PRACTICE 15 MINUTES [facility] - 6 6 HEALTH INPATIENT [facility] - 6 6 HEALTH OUTPATIEN [place] T OFFICE 41089 ADITYA CHR ADITYA CHR OUTPATIEN 6 6 T NEW 20 MINUTES OFFICE 43943 [facility] COLES OUTPATIEN 6 6 HEALTH JAM T VISIT MEDICAL 15 GROUP MINUTES OFFICE 76320 [facility] MATCHESWA OUTPATIEN 6 6 HEALTH LA KAIT T VISIT MEDICAL 15 GROUP MINUTES OFFICE 51089 [facility] CONNELL OUTPATIEN 5 5 HEALTH DON T VISIT MEDICAL 15 GROUP MINUTES OFFICE 89993 [facility] OUTPATI[facility] 5 5 T VISIT ORTHOPAED 10 IC ASSOCI MINUTES PERIODIC 86456 [facility] COLES PREVENTIV 5 5 HEALTH JAM E MED EST MEDICAL PATIENT GROUP 18-39 YRS EMERGENCY 85728 [facility]PT 5 5 KATHRYN THO VISIT EMERGENCY HIGH PHYS SEVERITY& THREAT [facility] - 5 5 [facility] T OFFICE 47324 [facility] COLES OUTPATIEN 5 5 HEALTH JAM T VISIT MEDICAL 15 GROUP MINUTES [facility] - 5 5 [facility] T OFFICE 02199 [place] OUTPATIEN 5 5 [place] T NEW 30 MINUTES OFFICE 37156 [facility] ZIEGLER ZIEGLER GORDO OUTPATIEN 5 5 MD T VISIT 5 CONSULTIN MINUTES G SRV OFFICE 09553 SAVANNAH GREEN MONE OUTPATIEN 5 5 FAMILY T VISIT PHYSICIAN 15 S PLLC MINUTES OFFICE 35303 [facility] KERRY OUTPATIEN 4 4 EXPRESS HEN T NEW 30 CARE MINUTES OFFICE 33571 SAVANNAH PETRAS OUTPATIEN 4 4 FAMILY ALI T VISIT PHYSICIAN 15 S PLLC MINUTES OFFICE 85524 COLES COLES OUTPATIEN 3 3 JAM JAM T VISIT 15 MINUTES OFFICE 40299 COLES COLES OUTPATIEN 3 3 JAM JAM T VISIT 15 MINUTES [facility]OSPITAL [facility] - 3 3 [facility] INPATIENT HOSP OFFICE 60061 COLES COLES OUTPATIEN 3 3 JAM JAM T VISIT 15 MINUTES OFFICE 95004 COLES COLES OUTPATIEN 3 3 JAM JAM T VISIT 15 MINUTES OFFICE 85882 COLES COLES OUTPATIEN 3 3 JAM JAM T VISIT 15 MINUTES OFFICE 64304 COLES COLES OUTPATIEN 3 3 JAM JAM T VISIT 15 MINUTES OFFICE 19749 COLES COLES OUTPATIEN 3 3 JAM JAM T VISIT 15 MINUTES OFFICE 68763 COLES COLES OUTPATIEN 3 3 JAM JAM T VISIT 15 MINUTES OFFICE 31200 COLES COLES OUTPATIEN 3 3 JAM JAM T VISIT 15 MINUTES OFFICE 41653 COLES COLES OUTPATIEN 3 3 JAM JAM T VISIT 15 MINUTES OFFICE 40796 COLES COLES OUTPATIEN 3 3 JAM JAM T VISIT 15 MINUTES OFFICE 32247 COLES COLES OUTPATIEN 3 3 JAM JAM T VISIT 15 MINUTES OFFICE 82476 COLES COLES OUTPATIEN 3 3 JAM JAM T VISIT 15 MINUTES [facility]OSPITAL [facility] - 3 3 [facility] INPATIENT HOSP OFFICE 00468 COLES COLES OUTPATIEN 3 3 JAM JAM T VISIT 15 MINUTES OFFICE 75310 COLES COLES OUTPATIEN 3 3 JAM JAM T VISIT 15 MINUTES OFFICE 59309 COLES COLES OUTPATIEN 3 3 JAM JAM T VISIT 15 MINUTES [facility]OSPITAL [facility] - 3 3 [facility] OUTPATIEN HOSP T OFFICE 24887 COLES COLES OUTPATIEN 3 3 JAM JAM T VISIT 15 MINUTES OFFICE 55293 COLES COLES OUTPATIEN 3 3 JAM JAM T VISIT 15 MINUTES HOSPITAL [facility]TR[facility] - 3 3 [facility] OUTPATIEN HOSP T OFFICE 72519 COLES COLES OUTPATIEN 3 3 JAM JAM T VISIT 15 MINUTES OFFICE 48345 COLES COLES OUTPATIEN 3 3 JAM JAM T VISIT 15 MINUTES OFFICE 60490 MCKEMIE MCKEMIE OUTPATIEN 3 3 JR ARIANNA JR ARIANNA T VISIT 15 MINUTES OFFICE 00330 COLES COLES OUTPATIEN 3 3 JAM JAM T VISIT 15 MINUTES EMERGENCY 98901 [facility] 2 2 [facility] T VISIT MODERATE SEVERITY [facility] 2 2 [facility] T EMERGENCY 58237 VERONICA CATALAN 2 2 EMERGENCY [facility] T VISIT HIGH/URGE NT SEVERITY
--- OUTSIDE RECORDS SUMMARY | 2016-12-11 09:21 | External Medical Summary Rpt ---
Author Author [employer]IC [employer], [employer]IC [employer] Organization [employer] Address Unknown Phone Unavailable
--- OUTSIDE RECORDS SUMMARY | 2016-12-11 09:21 | External Medical Summary Rpt | CCD ---
Author Author , ERIC REYES Address Unknown Phone [employer] Immunization Name Date Rout CVX Reac Dose Comm Prov Is Faci e tion ent ider Refu lity Give sed n Hep 10-1 8 999 Hist H191 No H191 B, 5-20 oric ped/ 01 al adol Info rmat ion - Sour ce Unsp ecif ied Hep 07-1 8 999 Hist H191 No H191 B, 9-20 oric ped/ 01 al adol Info rmat ion - Sour ce Unsp ecif ied Hep 06-1 8 999 Hist H191 No H191 B, 3-20 oric ped/ 01 al adol Info rmat ion - Sour ce Unsp ecif ied MMR 06-1 3 999 Hist H191 No H191 3-20 oric 01 al Info rmat ion - Sour ce Unsp ecif ied
--- OUTSIDE RECORDS SUMMARY | 2016-12-11 09:21 | External Medical Summary Rpt | CCD ---
Author Author , ERIC REYES Address Unknown Phone [email or web address] Immunization Name Date Rout CVX Reac Dose [...]
--- NOTE | 2016-12-11 09:41 | Urgent Treatment Center Report ---
History of Present Issue Date/Time Seen by Provider 12/11/1629 Visit Reason Pt arrived:Walked Presenting Problem:COUGH, CONGESTION Location if Accident: Onset of symptoms date/time:/ or onset unknown for:MEDICAL HX UNKNOWN Have you (or family members/close friends) recently traveled outside the [place]? N If Yes, where/when: Have you had exposure to infectious disease within the past month? TB? Other? Specify: c/o rhinorrhea, productive cough and chest congestion x 1 month. Started one month ago w/ sore throat, rhinorrhea, cough. Developed hoarseness. Did not seek treatment. Thought she was improving except rhinorrhea. 2 weeks ago symptoms started getting worse again. Still didn't seek treatment. 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 Finished this morning. No improvement. Denies fever, aches, chills. Has been wheezing intermittently. No SOA. Tried listening to own lungs and thought she heard rhonchi on left last night. + tobacco abuse. 1 pack every 3 days. Child recovering now from a similiar illness, dx viral. Hasn't taken or tried anything except zpack and ibuprofen. Source patient Exam Limitations no limitations ALLERGIES Coded Allergies: cefaclor (From [facility]) (12/11/16) Home Medications Reported Medications Metaxalone (Skelaxin 800MG Tab) 800 MG PO QID Acetaminophen W/ Hydrocodone (Lortab 5/500) 1 TAB PO Q6HP History Medical History General Angina: No [place]: No Hypertension? No Hyperlipidemia? No COPD? No Asthma? No CVA? No Seizures? No Diabetes? No GB Disease: No MRSA? No TB? No Cancer? 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 denies: ear pain, throat swelling. Respiratory see HPI Cardiovascular denies chest pain, denies palpitations Gastrointestinal denies no symptoms reported Musculoskeletal denies joint pain Skin denies rash Psychiatric/Neurological denies headache Physical Exam Vital Signs Vital Signs Date Time Temp Pulse Resp B/P Pulse O2 O2 Flow FiO2 Ox Delivery Rate 12/11 1054 97.9 81 20 110/71 97 12/11 0920 97.9 81 20 110/71 97 General Appearance normal appearance, no apparent distress Ear, Nose, Throat normal ENT inspection Neck non-tender, supple Respiratory Status Yes: trachea midline, chest symmetrical, non tender chest, non productive cough. No: respiratory distress, use of accessory muscles, pain on inspiration, pain on expiration, productive cough. Lung Sounds bilateral: lungs clear (except LLL), wheezing (faint end exp LLL only). Cardiovascular regular rate/rhythm, no peripheral edema, no murmur Neurologic alert, oriented x 3 Skin normal color, warm/dry Lymphatic no adenopathy Medical Decision Making LABS/Meds/Orders Pt receiving controlled substance in ED? No Results/Orders Current Medication Orders Sig/Ritchie Start time Last Medication Dose Route Stop Time Status Admin Methylprednisolone 125 MG ONCE ONE 12/11 1030 DC 12/11 Sodium Succinate IM 12/11 1031 1035 Methylprednisolone 0 .STK-MED ONE 12/11 1030 DC Sodium Succinate .ROUTE Orders Procedure Date/time Status CHEST(2 VIEWS-NOT PORTABLE) 12/11 0933 Active XRAY/CT/US XRAY/CT/US XRAY chest XR interpretation by reviewed by me (w/ Dr. Patterson, ER ) Xray Results no acute findings Progress [facility] Progress Notes Date 12/11/16 Time 0934 Comment xray notified of CXR order. Currently in ER. Departure Departure Time of Disposition 1016 Disposition DC Home or Self Care(routine) Clinical Impression Primary Impression: Acute bronchitis Qualifiers: Bronchitis organism: unspecified organism Qualified Code: J20.9 - Acute bronchitis, unspecified Secondary Impressions: Tobacco abuse Condition STABLE Referrals Adal ARCHER,Andrew (Family) IMMEDIATELY for new or worsening symptoms OR no noticeable improvement over the next 48-72 hours. 911 for difficulty breathing. Patient Instructions DI for Acute Bronchitis, How to Quit Tobacco Products Additional Instructions * STOP SMOKING!!! * The antibiotic you completed today is continuing to work but this is likely viral and that is why you haven't seen an improvement with the zpack * Monitor Temp. FU if fever develops * humidifier/vaporizer/hot steamy shower * Inhaler every 4-6 hours as needed like we discussed. If unsure how to use it, ask pharmacist to demonstrate how. Should help open airways and improve cough, wheezing, shortness of breath. * Mucinex during the day for your cough and cough suppressant only at night. Be sure to drink lots of water. Insurance may not cover a prescription of mucinex. Might be cheaper to get 400mg tablets and take 2 tablets morning, midday and evening all with lots of water. * Tessalon Perles will not cause drowsiness but use at bedtime to help stop cough so that you can get some rest * Start steroid tomorrow since you rcvd a steroid injection in clinic. Helps with inflammation therefore, cough and wheezing. Follow directions on package. Rvwd side effects. Pt reports they have taken them before. Discharge Counseling Counseled pt/family regarding diagnosis, test results, medications/RX, home care, follow up needs Prescriptions Current Visit Scripts ALBUTEROL (Proventil Hfa Inhaler) 1-2 PUFF IH Q4-6H PRN PRN SOA, wheezing #1 CAN Prednisone (Prednisone 20MG) 20 MG PO BID #10 TAB Benzonatate 200 MG PO QHSP PRN cough #14 SGL at 1105
--- NOTE | 2016-12-11 09:41 | Urgent Treatment Center Report ---
History of Present Issue Date/Time Seen by Provider 12/11/1647 Visit Reason Pt arrived:Walked Presenting Problem:COUGH, CONGESTION Location if Accident: Onset of symptoms date/time:/ or onset unknown for:MEDICAL HX UNKNOWN Have you (or family members/close friends) recently traveled outside the [place]? N If Yes, where/when: Have you had exposure to infectious disease within the past month? TB? Other? Specify: c/o rhinorrhea, productive cough and chest congestion x 1 month. Started one month ago w/ sore throat, rhinorrhea, cough. Developed hoarseness. Did not seek treatment. Thought she was improving except rhinorrhea. 2 weeks ago symptoms started getting worse again. Still didn't seek treatment. 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 Finished this morning. No improvement. Denies fever, aches, chills. Has been wheezing intermittently. No SOA. Tried listening to own lungs and thought she heard rhonchi on left last night. + tobacco abuse. 1 pack every 3 days. Child recovering now from a similiar illness, dx viral. Hasn't taken or tried anything except zpack and ibuprofen. Source patient Exam Limitations no limitations ALLERGIES Coded Allergies: cefaclor (From [facility]) (12/11/16) Home Medications Reported Medications Metaxalone (Skelaxin 800MG Tab) 800 MG PO QID Acetaminophen W/ Hydrocodone (Lortab 5/500) 1 TAB PO Q6HP History Medical History General Angina: No [place]: No Hypertension? No Hyperlipidemia? No COPD? No Asthma? No CVA? No Seizures? No Diabetes? No GB Disease: No MRSA? No TB? No Cancer? No Immunization HX DT/Tetanus 5-10 YRS Surgical Hx Previous Surgery?Y TONSILECTOMY ORAL SURGERY BREAST AUGMENTATION [employer] Hx LMP 2 Weeks Ago Social History Smoking Hx Smoker: Current Every Day Smoker Tobacco: Yes Type Cigarettes Packs/day < 1 Pack Alcohol Alcohol: Yes Review of Systems All Other Systems Reviewed and Negative Constitutional see HPI, denies malaise Eyes denies drainage ENT see HPI, nose congestion, throat pain (again 2-3 days ago,better now). denies: ear pain, throat swelling. Respiratory see HPI Cardiovascular denies chest pain, denies palpitations Gastrointestinal denies no symptoms reported Musculoskeletal denies joint pain Skin denies rash Psychiatric/Neurological denies headache Physical Exam Vital Signs Vital Signs Date Time Temp Pulse Resp B/P Pulse O2 O2 Flow FiO2 Ox Delivery Rate 12/11 1054 97.9 81 20 110/71 97 12/11 0920 97.9 81 20 110/71 97 General Appearance normal appearance, no apparent distress Ear, Nose, Throat normal ENT inspection Neck non-tender, supple Respiratory Status Yes: trachea midline, chest symmetrical, non tender chest, non productive cough. No: respiratory distress, use of accessory muscles, pain on inspiration, pain on expiration, productive cough. Lung Sounds bilateral: lungs clear (except LLL), wheezing (faint end exp LLL only). Cardiovascular regular rate/rhythm, no peripheral edema, no murmur Neurologic alert, oriented x 3 Skin normal color, warm/dry Lymphatic no adenopathy Medical Decision Making LABS/Meds/Orders Pt receiving controlled substance in ED? No Results/Orders Current Medication Orders Sig/Ritchie Start time Last Medication Dose Route Stop Time Status Admin Methylprednisolone 125 MG ONCE ONE 12/11 1030 DC 12/11 Sodium Succinate IM 12/11 1031 1035 Methylprednisolone 0 .STK-MED ONE 12/11 1030 DC Sodium Succinate .ROUTE Orders Procedure Date/time Status CHEST(2 VIEWS-NOT PORTABLE) 12/11 0933 Active XRAY/CT/US XRAY/CT/US XRAY chest XR interpretation by reviewed by me (w/ Dr. Patterson, ER ) Xray Results no acute findings Progress [facility] Progress Notes Date 12/11/16 Time 0934 Comment xray notified of CXR order. Currently in ER. Departure Departure Time of Disposition 1016 Disposition DC Home or Self Care(routine) Clinical Impression Primary Impression: Acute bronchitis Qualifiers: Bronchitis organism: unspecified organism Qualified Code: J20.9 - Acute bronchitis, unspecified Secondary Impressions: Tobacco abuse Condition STABLE Referrals Adal ARCHER,Andrew (Family) IMMEDIATELY for new or worsening symptoms OR no noticeable improvement over the next 48-72 hours. 911 for difficulty breathing. Patient Instructions DI for Acute Bronchitis, How to Quit Tobacco Products Additional Instructions * STOP SMOKING!!! * The antibiotic you completed today is continuing to work but this is likely viral and that is why you haven't seen an improvement with the zpack * Monitor Temp. FU if fever develops * humidifier/vaporizer/hot steamy shower * Inhaler every 4-6 hours as needed like we discussed. If unsure how to use it, ask pharmacist to demonstrate how. Should help open airways and improve cough, wheezing, shortness of breath. * Mucinex during the day for your cough and cough suppressant only at night. Be sure to drink lots of water. Insurance may not cover a prescription of mucinex. Might be cheaper to get 400mg tablets and take 2 tablets morning, midday and evening all with lots of water. * Tessalon Perles will not cause drowsiness but use at bedtime to help stop cough so that you can get some rest * Start steroid tomorrow since you rcvd a steroid injection in clinic. Helps with inflammation therefore, cough and wheezing. Follow directions on package. Rvwd side effects. Pt reports they have taken them before. Discharge Counseling Counseled pt/family regarding diagnosis, test results, medications/RX, home care, follow up needs Prescriptions Current Visit Scripts ALBUTEROL (Proventil Hfa Inhaler) 1-2 PUFF IH Q4-6H PRN PRN SOA, wheezing #1 CAN Prednisone (Prednisone 20MG) 20 MG PO BID #10 TAB Benzonatate 200 MG PO QHSP PRN cough #14 SGL at 1107
[2016-12-11] MEDS ORDERED: PREDNISONE 20MG20 MG PO (10:19)
[2016-12-11] MEDS ORDERED: BENZONATATE200 MG PO (10:19)
[2016-12-11] MEDS ORDERED: PROVENTIL0.09 MG/A1 IH (10:19)
[2016-12-11 10:54] VITALS: BP 110/71
--- NOTE | 2016-12-11 12:53 | RADIOLOGY REPORT PS360 ---
CHEST(2 VIEWS-NOT PORTABLE) INDICATION: Persistent cough, smoking history COMPARISON: PA and lateral chest 04/23/2011 FINDINGS: The lung roe are well expanded and appear clear of infiltrate. The cardiomediastinal silhouette and vascularity are normal. The costophrenic angles are clear. The bony thorax is normal. IMPRESSION: Normal chest.
== END 2016-12-11 10:54 | disposition home or self-care (01) ==
LOC: UTC 09:09
DX: J20.9 Acute bronchitis, unspecified (principal); F17.210 Nicotine dependence, cigarettes, uncomplicated; Z88.1 Allergy status to other antibiotic agents